=== PATIENT | female | born 1960 | race Caucasian/White ===

== ENCOUNTER → 2019-11-13 | Outpatient (CLI) | payer OTHER, SELFPAY | END | disposition home or self-care (01) | LOC: LABSPEC 11-14 13:21 | DX: Z20.828 Contact with and (suspected) exposure to other viral communicable diseases (principal); R50.9 Fever, unspecified; R09.81 Nasal congestion; M79.10 Myalgia, unspecified site | CPT/HCPCS: 87635; C9803; U0003 ==

== ENCOUNTER → 2020-04-20 | Outpatient (CLI) | payer OTHER, SELFPAY ==
--- NOTE | 2020-04-20 13:27 | CYSPIN_PTH ---
PATIENT: ALISA REVELES [facility]: [facility] U#:[id number] AGE/SX: 59/F ROOM: RE04/20/[address]: Dr. Ra Son MD : 1960 BED: DIS: 04/20/2020 SPEC #: [id number] RECD: 04/21/20 07:41 STATUS: MATTHEW RESophie #: [id number] TAHIR: 04/20/20 13:[address]: Ra Son DEPT: CYTOLOGY RECD BY: Niukra Gannon Tissues: Urine Procedures: Pap Stain (control) Special Stain Group II Cytospin Fluid HEADER OPERATION: Not noted PRE-OP DIAGNOSIS: History bladder cancer TISSUE SUBMITTED: Urine for cytology DIAGNOSIS CYTOLOGY Urine for cytology (cytospin): Negative for malignant cells. AM:tasia 04/22/2020 CYTOLOGY STUDY Slides are reviewed. CYTOLOGY GROSS Received is 60 ml of yellow clear fluid labeled with the patient's name and and designated per the requisition as urine. Submitted for cytology preparation. / tasia 04/21/2020 TC:5 CPT: 79879
[2020-04-20 13:28] LABS: Bacteria 0 SEEN /hpf (None Seen); Cytology, Body Fluid / CSF SEE PATHOLOGY REPORT; Mucous, Urine 0 SEEN /hpf (<or=2+); Red Blood Cells-Urine 0 SEEN /hpf (0-5); White Blood Cells 0 SEEN /hpf (0-5)
[2020-04-20 15:18] LABS: Color, Urine Yellow (Yellow); Glucose, Dipstick Normal (Normal); Ketone-Dipstick Negative (Negative); Leukocyte Esterase-Dipstick Negative /ul (Negative); Nitrite-Dipstick Negative (Negative); Occult Blood-Urine Negative /ul (Negative); Protein-Dipstick Negative (Negative); Urine Bilirubin Dipstick Negative (Negative); Urine Clarity Sl. Cloudy (Clear); Urine Urobilinogen Normal (Normal)
[2020-04-20 15:24] LABS: Squamous Epithelial Cells - UA 0-5 SEEN /hpf (5-10)
== END | disposition home or self-care (01) ==
LOC: LABSPEC 13:24
PROVIDERS: Visit Provider Urology
DX: Z85.51 Personal history of malignant neoplasm of bladder (principal)
CPT/HCPCS: 81001; 88108; 88313

== ENCOUNTER → 2022-09-27 | Outpatient (CLI) | payer SELFPAY ==
[2022-09-27 14:04] LABS: Thyroid Stim Hormone (TSH) 2.31 uIU/mL (0.358-3.74)
== END | disposition home or self-care (01) ==
PROVIDERS: PCP Internal Medicine; Referring Provider Internal Medicine; Visit Provider Internal Medicine
DX: E03.9 Hypothyroidism, unspecified (principal)
CPT/HCPCS: 36415; 84443

== ENCOUNTER → 2022-12-07 | Outpatient (CLI) | payer SELFPAY ==
[2022-12-07 14:06] LABS: Vitamin D,25 Hydroxy 69.8 ng/mL
== END | disposition home or self-care (01) ==
LOC: LAB 12:17
PROVIDERS: PCP Internal Medicine; Visit Provider Internal Medicine
DX: E55.9 Vitamin D deficiency, unspecified (principal)
CPT/HCPCS: 36415; 82306

== ENCOUNTER → 2023-05-08 | Outpatient (CLI) | payer SELFPAY ==
[2023-05-08 10:45] LABS: Mucous, Urine 0 SEEN /hpf (<or=2+)
[2023-05-08 11:19] LABS: Color, Urine Yellow (Yellow); Glucose, Dipstick Normal (Normal); Ketone-Dipstick Negative (Negative); Leukocyte Esterase-Dipstick 100 /ul (Negative); Nitrite-Dipstick Negative (Negative); Occult Blood-Urine 50 /ul (Negative); Protein-Dipstick 30 mg/dl (Negative); Urine Bilirubin Dipstick Negative (Negative); Urine Clarity Sl. Cloudy (Clear); Urine Urobilinogen Normal (Normal)
[2023-05-08 11:31] LABS: Amorphous Sediment 2+; Bacteria 1+ /hpf (None Seen); Red Blood Cells-Urine 0-5 SEEN /hpf (0-5); Squamous Epithelial Cells - UA 0-5 SEEN /hpf (5-10); White Blood Cells 10-25 SEEN /hpf (0-5)
== END | disposition home or self-care (01) ==
LOC: LABSPEC 10:28
PROVIDERS: PCP Internal Medicine; Referring Provider Nurse Practitioner Family; Visit Provider Nurse Practitioner Family
DX: R30.0 Dysuria (principal)
CPT/HCPCS: 81001; 87086; 87088

== ENCOUNTER → 2023-10-16 | Outpatient (CLI) | payer MEDICARE, OTHER, SELFPAY ==
[2023-10-16 17:01] LABS: Cytology, Body Fluid / CSF SEE PATHOLOGY REPORT
--- NOTE | 2023-10-17 | CYSPIN_PTH ---
PATIENT: ALISA REVELES LOC: [facility] U#:[id number] AGE/SX: 63/F ROOM: RE10/16/[address]: Dr. Ra Son MD : 1960 BED: DIS: 10/16/2023 SPEC #: [id number] RECD: 10/17/23 10:09 STATUS: MATTHEW RESophie #: [id number] TAHIR: 10/17/23 00:[address]: Ra Son DEPT: CYTOLOGY RECD BY: Patrick Faria ENTERED: 10/17/23 10:09 SP TYPE: CYSPIN FL OTHR DR: Dr. Chantel Xie MD Tissues: Urine Procedures: Pap Stain (control) Special Stain Group II Cytospin Fluid HEADER OPERATION: Not noted PRE-OP DIAGNOSIS: Malignant neoplasm of lateral wall of bladder TISSUE SUBMITTED: Urine for cytology DIAGNOSIS CYTOLOGY Urine for cytology (cytospins): Atypical urothelial cells present (Amanda Category System III). See comment. AM/ 10/17/2023 COMMENT The Amanda System for urine cytology diagnostic categorization was used in the evaluation of this case. CYTOLOGY STUDY Slides are reviewed. CYTOLOGY GROSS Received is 40 ml of light-yellow cloudy fluid labeled with the patient's name and and designated per the requisition as urine. Submitted for cytology preparation. Mr 10/17/2023 TC:? CPT: 24255
== END | disposition home or self-care (01) ==
LOC: LABSPEC 16:28
PROVIDERS: PCP Internal Medicine; Referring Provider Urology; Visit Provider Urology
DX: C67.2 Malignant neoplasm of lateral wall of bladder (principal)
CPT/HCPCS: 88108; 88313

== ENCOUNTER → 2024-04-22 | Outpatient (CLI) | payer MEDICARE, OTHER, SELFPAY | END | disposition home or self-care (01) | LOC: LABSPEC 10:52 | PROVIDERS: PCP Internal Medicine; Referring Provider Physician Assistant; Visit Provider Physician Assistant | DX: R39.15 Urgency of urination (principal) | CPT/HCPCS: 87086; 87088 ==

== ENCOUNTER → 2024-05-16 | Outpatient (CLI) | payer MEDICARE, OTHER, SELFPAY | END | disposition home or self-care (01) | LOC: LABSPEC 15:54 | PROVIDERS: PCP Internal Medicine; Referring Provider Nurse Practitioner; Visit Provider Nurse Practitioner | DX: N30.00 Acute cystitis without hematuria (principal) | CPT/HCPCS: 87077; 87086; 87088 ==

== ENCOUNTER → 2024-05-28 | Outpatient (CLI) | payer MEDICARE, OTHER, SELFPAY ==
[2024-05-28 16:39] LABS: Creatinine, Serum 0.78 mg/dL (0.70-1.20); EST Glomerular Filtration Rate 84 (>60)
== END | disposition home or self-care (01) ==
LOC: MTLAB 12:49
PROVIDERS: PCP Internal Medicine; Referring Provider Specialist; Visit Provider Specialist
DX: N28.89 Other specified disorders of kidney and ureter (principal)
CPT/HCPCS: 36415; 82565

== ENCOUNTER → 2024-06-14 | Outpatient (CLI) | payer MEDICARE, OTHER, SELFPAY ==
[2024-06-14 12:18] LABS: Anion Gap 10 (5-15); BUN 15 mg/dL (4-19); BUN/Creat Ratio 20.8 RATIO (10-20); Calcium,Total 9.8 mg/dL (7.6-11.0); Carbon Dioxide 24.8 mmol/L (21.0-32.0); Chloride 104 mmol/L (98-108); Creatinine, Serum 0.72 mg/dL (0.70-1.20); EST Glomerular Filtration Rate 92 (>60); Glucose 95 mg/dL (70-99); Potassium 4.4 mmol/L (3.3-5.1); Sodium Level 139 mmol/L (133-145)
== END | disposition home or self-care (01) ==
LOC: LAB 09:55
PROVIDERS: PCP Internal Medicine; Referring Provider Specialist; Visit Provider Specialist
DX: Z01.818 Encounter for other preprocedural examination (principal)
CPT/HCPCS: 36415; 80048

== ENCOUNTER → 2024-07-11 | Outpatient (CLI) | payer MEDICARE, OTHER, SELFPAY ==
--- NOTE | 2024-07-11 11:35 | CYST_PTH ---
PATIENT: ALISA REVELES [facility]: [facility] U#:[id number] AGE/SX: 63/F ROOM: RE07/11/[address]: Dr. Kenji Lobato MD : 1960 BED: DIS: 07/11/2024 SPEC #: [id number] RECD: 07/11/24 14:55 STATUS: MATTHEW RESophie #: [id number] TAHIR: 07/11/24 11:[address]: Kenji Lobato DEPT: SURGICAL PATHOLOGY RECD BY: Jay Rodriguez ENTERED: 07/11/24 15:53 SP TYPE: Cyst OTHR DR: Dr. Chantel Xie MD Tissues: A - CYST Procedures: Surgery Specimen Level III HEADER OPERATION: Removal cyst right long finger flexor tendon sheath PRE-OP DIAGNOSIS: Cyst long finger flexor tendon sheath, right TISSUE SUBMITTED: A- Right long finger MICROSCOPIC DIAGNOSIS A. Soft tissue, right long finger, excision: * Benign collagenous fibrous tissue with a collapsed cyst, compatible with tendon sheath cyst MICROSCOPIC DESCRIPTION Slides are reviewed. GROSS DESCRIPTION A. Received in formalin in a container labeled with the patient's name, date of , and with the accompanying paperwork indicating, right cyst long finger flexor tendon is a 1.2 x 0.7 x 0.5 cm white-yee and previously disrupted cystic-like structure. There is attached mcleod-yellow, lobulated adipose tissue. The outer surface is inked green, and serial sections reveal a scant amount of thin serous fluid with a smooth and glistening inner lining. There is an average wall thickness of 0.1 cm. Submitted entirely in A1. [facility] 07-11-2024 CPT:80884
--- OUTSIDE RECORDS SUMMARY | 2024-07-11 21:50 | XMS RPT_ITS | CCD ---
Author Organization [facility] CliniSymi Care Team Providers Care News Director Name Role Phone ANNE-MARIE WALKER, DR MONIK Sequeira Primary Care Physician Tabatha Walton Attending Unavailable Tabatha Walton Attending Unavailable Dr. Monik Xie Primary Care Provider Dr. Monik Xie Referring Provider Gregorio MARKET RESEARCH INTERVIEWER, MARKET RESEARCH INTERVIEWERHemanth Cortes Attending Provider ANNE-MARIE WALKER, DR MONIK Sequeira Primary Care Physician ANNE-MARIE WALKER, DR MONIK Sequeira Attending Cira XIE MD, DR MONIK Sequeira Primary Care Cira XIE MD, DR MONIK Sequeira Attending Cira XIE MD, DR MONIK Sequeira Primary Care Cira XIE MD, DR MONIK Sequeira Primary Care Cira XIE MD, DR MONIK Sequeira Attending Cira Xie MD, Dr. Ruggiero Primary Care Provider Anne-Marie WALKER, Dr. Ruggiero Referring Provider Carloz Wilkes Attending Provider Carloz Wilkes Attending Provider Carloz Wilkes Referring Provider Jaida Pennington Attending Provider Jaida Pennington Referring Provider Luis Alfredo WALKER, Dr. Phillip Attending Provider [phone] Kenji Lobato MD Referring Provider [phone] Jaida Pennington Attending Unavailable Jaida Pennington Referring Unavailable Anne-Marie, Monik Primary Care Unavailable Kenji Lobato Attending Unavailable Kenji Lobato Referring Unavailable Anne-Marie, Monik Primary Care Unavailable Sadi, Luke Referring Unavailable Anne-Marie, Monik Primary Care Unavailable Carloz Avitia Attending Unavailable Kenji Lobato Attending Unavailable Kenji Lobato Referring Unavailable Anne-Marie, Monik Primary Care Unavailable Anne-Marie, Monik Primary Care Unavailable Anne-Marie, Monik Referring Unavailable Jean Pierre Ware Attending Unavailable Anne-Marie, Monik Primary Care Unavailable Anne-Marie, Monik Referring Unavailable Sadi, Luke Attending Unavailable Anne-Marie, Monik Primary Care Unavailable Ra Son Attending Unavailable Ra Son Referring Unavailable Allergies Allergy Classification Reported Allergen(s) Allergy Type Date of Onset Reaction(s) Facility (11 sources) Amoxicillin; Translations: [amoxicillin] Drug Allergy 05-07-19 Eruption of skin (disorder) [facility] (7 sources) Contrast media Propensity to adverse reactions to drug [facility] (7 sources) Morphine; Translations: [morphine] Drug Allergy Nausea and vomiting (disorder) [facility] (3 sources) Amoxicillin Drug Allergy 08-21-19 23 [facility] Repository (4 sources) Sulfamethoxazole Drug Allergy 05-09-19 24 [facility] (4 sources) Trimethoprim Drug Allergy 05-09-19 24 [facility] (2 sources) Sulfamethizole; Translations: [sulfamethizole] Drug Allergy [facility] (1 source) Sulfamethoxazole Drug Allergy 04-21-19 25 [facility] Repository (1 source) Trimethoprim Drug Allergy 04-21-19 25 [facility] Repository Medications Current Medications Medication Drug Class(es) Dates Sig (Normalized) Sig (Original) levothyroxine (10 sources) l-Thyroxine Start: 04-20-2024 take 1 tablet by mouth once daily Levothyroxine 88 mcg tablet Active 88 ug PO daily April 20, 2024 12:00am Start: 10-13-2023 levothyroxine 88 mcg (0.088 mg) oral tablet Dose : 88 mcg = 1 tab(s), Oral, qDay, with plenty of water avoid antacids, calcium, or iron for at least 4 hrs before or 4 hrs after as a single daily dose before breakfast on an empty stomach, # 90 tab(s), 3 Refill(s), Pharmacy: [facility], Primary hypothyroidism, 160, cm, 10/13/23 9:45:00 EDT, Height, kg, 10/13/23 9:45:00 EDT, Dosing Weight Start Date: 10/13/23 Status: Ordered Start: 10-12-2022 levothyroxine 88 mcg (0.088 mg) oral tablet Dose : 88 mcg = 1 tab(s), Oral, qDay, # 90 tab(s), 3 Refill(s), Pharmacy: [facility], Primary hypothyroidism, 160, cm, 10/12/22 9:42:00 EDT, Height, kg, 10/12/22 9:42:00 EDT, Dosing Weight Start Date: 10/12/22 Status: Ordered Start: 10-06-2021 End: 10-01-2022 levothyroxine 75 mcg (0.075 mg) oral tablet Dose : 75 mcg = 1 tab(s), Oral, qAM, # 90 tab(s), 3 Refill(s), Pharmacy: [facility], 160, cm, 09/25/20 9:06:00 EDT, Height, kg, 09/25/20 9:06:00 EDT, Dosing Weight Start Date: 10/06/21 Stop Date: 10/01/22 Status: Ordered lisinopril 20 mg oral tablet (5 sources) Angiotensin Converting Enzyme Inhibitor Start: 04-20-2024 take 1 tablet by mouth at bedtime Lisinopril 20 mg tablet Active 20 mg PO AT BEDTIME April 20, 2024 12:00am Start: 02-08-2023 lisinopril 20 mg oral tablet Dose : 20 mg = 1 tab(s), Oral, qHS, # 90 tab(s), 3 Refill(s), Pharmacy: [facility], 160, cm, 01/09/23 14:42:00 EST, Height, kg, 01/09/23 14:42:00 EST, Dosing Weight Start Date: 02/08/23 Status: Ordered Magnesium (3 sources) Start: 04-20-2024 take 1 tablet by mouth once daily Magnesium 200 mg tablet Active 200 mg PO daily April 20, 2024 12:00am melatonin 5 mg oral tablet (6 sources) Start: 11-23-2018 Melatonin 5 mg oral tablet Dose : 5 mg = 1 tab(s), Oral, qHS, PRN as needed for insomnia, # 60 tab(s), 0 Refill(s) Start Date: 11/23/18 Status: Ordered naproxen sodium 220 mg oral tablet (5 sources) Nonsteroidal Anti-inflammatory Drug Start: 07-13-2017 Aleve 220 mg oral tablet Dose : 220 mg = 1 tab(s), Oral, qDay, PRN as needed for pain, # 30 tab(s), 0 Refill(s) Start Date: 07/13/17 Status: Ordered Vitamin D2 1.25 mg (50,000 intl units) oral capsule (2 sources) Start: 10-14-2023 Vitamin D2 1.2 5 mg (50,000 intl units) oral capsule Dose : 50,000 International_Un it = 1 cap(s), Oral, qmonth, # 4 cap(s), 3 Refill(s), Pharmacy: [facility], 160, cm, 10/13/23 9:45:00 EDT, Height, kg, 10/13/23 9:45:00 EDT, Dosing Weight Start Date: 10/14/23 Status: Ordered Start: 03-31-2023 Vitamin D2 1.2 5 mg (50,000 intl units) oral capsule Dose : 50,000 International_Unit = 1 cap(s), Oral, qmonth, # 4 cap(s), 3 Refill(s), Pharmacy: [facility], 160, cm, 01/09/23 14:42:00 EST, Height, kg, 01/09/23 14:42:00 EST, Dosing Weight Start Date: 03/31/23 Status: Ordered Completed/Discontinued Medications Medication Drug Class(es) Dates Sig (Normalized) Sig (Original) cephalexin 500 mg oral capsule (6 sources) Cephalosporin Antibacterial Start: 04-20-2024 End: 04-27-2024 take 1 capsule by mouth every twelve hours Cephalexin 500 mg capsule Discontinued 500 mg PO Q12H 14 April 20, 2024 12:00am April 26, 2024 12:00am April 27, 2024 12:26am Start: 08-04-2023 End: 08-14-2023 take 1 capsule by mouth every twelve hours Cephalexin 500 mg capsule Discontinued 500 mg PO Q12H 20 August 04, 2023 12:00am August 13, 2023 12:00am August 14, 2023 12:05am ciprofloxacin 500 mg oral tablet (4 sources) Quinolone Antimicrobial Start: 05-09-2023 End: 05-16-2023 take 1 tablet by mouth every twelve hours Ciprofloxacin Hcl (Cipro) 500 mg tablet Discontinued 500 mg PO Q12H 14 May 09, 2023 12:00am May 15, 2023 12:00am May 16, 2023 12:05am hydrocortisone 10 mg/ml / neomycin 3.5 mg/ml / polymyxin b [id number] unt/ml otic suspension (4 sources) Aminoglycoside Antibacterial, Polymyxin-class Antibacterial, Corticosteroid Start: 05-09-2023 End: 05-09-2023 Neomycin-Polymyxin -Hc 3.5-10,000-1 mg/mL-unit/mL-% drops,suspension Discontinued 3 NMA OTIC Q4H 10 May 09, 2023 12:00am May 18, 2023 12:00am May 09, 2023 12:54pm apply to (cotton) wick; replace wick every 24 hours Start: 05-09-2023 End: 05-09-2023 Mzlvwloc-Fdibatros-Xq Discon tinued 3 DRP OTIC Q4H 10 May 09, 2023 12:00am May 09, 2023 12:54pm apply to (cotton) wick; replace wick every 24 hours sulfamethoxazole 800 mg / trimethoprim 160 mg oral tablet (4 sources) Dihydrofolate Reductase Inhibitor Antibacterial, Sulfonamide Antimicrobial Start: 05-07-2023 End: 05-10-2023 Sulfamethoxazole-Trimethopri m (Bactrim Ds) 800-160 mg tablet Discontinued 1 {tbl} PO TWICE A DAY 6 3 May 07, 2023 12:00am May 09, 2023 12:00am May 10, 2023 12:05am Problems Problem Classification Problem Date Documented Da te Episodic/Chronic Cancer of bladder (8 sources) Malignant tumor of urinary bladder; Translations: [Malignant neoplasm of lateral wall of bladder] Onset: 02-06-2002 11-07-2013 Chronic Comment on above: chemo x2, BSG, mitom yacin Diseases of mouth; excluding dental (4 sources) Uvulitis; Translations: [Cellulitis and abscess of mouth] 12-28-2021 Episodic Essential hypertension (3 sources) Essential hypertension; Translations: [Essential (primary) hypertension] Chronic Genitourinary symptoms and ill-defined conditions (6 sources) Frequency of micturition; Translations: [Urgency of urination] Onset: 08-20-2022 Episodic Nutritional deficiencies (3 sources) Vitamin D deficiency; Translations: [Vitamin D deficiency, unspecified] Chronic Other connective tissue disease (1 source) Cramp in lower limb 10-13-2023 Episodic Other diseases of kidney and ureters (1 source) Other specified disorders of kidney and ureter; Translations: [Other specified disorders of kidney and ureter] Onset: 05-31-2024 Chronic Other gastrointestinal disorders (1 source) Urgent desire for stool 10-13-2023 Episodic Other skin disorders (1 source) Non-scarring alopecia; Translations: [Nonscarring hair loss, unspecified] Episodic Other skin disorders (1 source) Loss of hair 10-12-2022 Episodic Residual codes; unclassified (2 sources) Family history of cancer of colon 10-12-2022 Episodic Thyroid disorders (8 sources) Hypothyroidism; Translations: [Hypothyroidism, unspecified] 11-23-2018 Chronic Unclassified (5 sources) Patient encounter status 10-13-2021 Urinary tract infections (10 sources) Urinary tract infection, site not specified; Translations: [Urinary tract infectious disease] Onset: 08-20-2022 05-07-2023 Episodic Results Test Name Value Interpretation Reference Range Facility Anion gap in Serum or Plasma Ordered By: Kenji Lobato on 06-14-2024 Anion gap [Moles/Vol] 10 mmol/L 06-20 [facility] BUN/creatinine ratioOrdered By: Kenji Lobato on 06-14-2024 Urea nitrogen/Creatinine [Mass ratio] 20.8 mg/mg High 11-25 [facility] Basic Metabolic Profile (BMP )on 06-14-2024 BUN/CRE 20.8 RATIO High 11-25 [facility] Comment on above: Performed By: #### L 500.2500 #### [facility] [address] [place], [address] Calcium [Mass/Vol] 9.8 mg/dL Normal 7.6-11.0 [facility] Comment on above: Performed By: #### L 500.2500 #### [facility] [address] [place], [address] Chloride [Moles/Vol] 104 mmol/L Normal 98-108 [facility] Comment on above: Performed By: #### L 500.2500 #### [facility] [address] [place], [address] CO2 [Moles/Vol] 24.8 mmol/L Normal 21.0-32.0 [facility] Comment on above: Performed By: #### L [id number] #### [facility] [address] [place], [address] Creatinine [Mass/Vol] 0.72 mg/dL Normal 0.70-1.20 [facility] Comment on above: Performed By: #### L [id number] #### [facility] [address] [place], [address] GAP 10 Normal 5-15 [facility] Comment on above: Performed By: #### L 500.2500 #### [facility] [address] [place], [address] GFR/1.73 sq M.predicted among non-blacks MDRD (S/P/Bld) [Vol rate/Area] 92 mL/min/{1.73_m2} Normal >60 [facility] Comment on above: Result Comment: mL/m in/1.73m2 CKD-EPI Creatinine Equation (2020) Performed By: #### L 500.2500 #### [facility] [address] [place], [address] Glucose [Mass/Vol] 95 mg/dL Normal 70-99 [facility] Comment on above: Performed By: #### L 500.2500 #### [facility] [address] [place], [address] Potassium [Moles/Vol] 4.4 mmol/L Normal 3.3-5.1 [facility] Comment on above: Performed By: #### L [id number] #### [facility] [address] [place], [address] Sodium [Moles/Vol] 139 mmol/L Normal 133-145 [facility] Comment on above: Performed By: #### L [id number] #### [facility] [address] [place], [address] Urea nitrogen [Mass/Vol] 15 mg/dL Normal 4-19 [facility] Comment on above: Performed By: #### L 500.2500 #### [facility] [address] [place], [address] Carbon dioxide, total [Moles /volume] in Central venous bloodOrdered By: Kenji Lobato on 06-14-2024 CO2 [Moles/Vol] 24.8 mmol/L 21.0-32.0 [facility] Chloride assayOrdered By: St nathaly Lobato on 06-14-2024 Chloride [Moles/Vol] 104 mmol/L 98-108 [facility] Glomerular filtration rate ( GFR) estimation/1.73 sq m using serum, plasma, or whole bOrdered By: Kenji Lobato on 06-14-2024 GFR/1.73 sq M.predicted among non-blacks MDRD (S/P/Bld) [Vol rate/Area] 92 mL/min/{1.73_m2} >60 [facility] Comment on above: mL/min/1.73m2 CKD-EP I Creatinine Equation (2020) Potassium measurement (mass/ volume)Ordered By: Kenji Lobato on 06-14-2024 Potassium (Unsp spec) [Mass/Vol] 4.4 mmol/L 3.3-5.1 [facility] Serum creatinine measurement (mass/volume)Ordered By: Kenji Lobato on 06-14-2024 Creatinine [Mass/Vol] 0.72 mg/dL 0.70-1.20 [facility] Serum glucose measurement (m ass/volume)Ordered By: Kenji Lobato on 06-14-2024 Glucose [Mass/Vol] 95 mg/dL 70-99 [facility] Serum or plasma calcium yaakov urement (mass/volume)Ordered By: Kenji Lobato on 06-14-2024 Calcium [Mass/Vol] 9.8 mg/dL 7.6-11.0 [facility] Serum or plasma urea nitroge n measurement (mass/volume)Ordered By: Kenji Lobato on 06-14-2024 Urea nitrogen [Mass/Vol] 15 mg/dL 4-19 [facility] Sodium levelOrdered By: Aroldo Lobato on 06-14-2024 Sodium [Moles/Vol] 139 mmol/L 133-145 [facility] Glomerular filtration rate ( GFR) estimation/1.73 sq m using serum, plasma, or whole bOrdered By: Kenji Lobato on 05-28-2024 GFR/1.73 sq M.predicted among non-blacks MDRD (S/P/Bld) [Vol rate/Area] 84 mL/min/{1.73_m2} >60 [facility] Comment on above: mL/min/1.73m2 CKD-EP I Creatinine Equation (2020) Serum creatinine measurement (mass/volume)Ordered By: Kenji Lobato on 05-28-2024 Creatinine [Mass/Vol] 0.78 mg/dL 0.70-1.20 [facility] Urine Cultureon 05-18-2024 [facility] Klebsiella pneumoniae sp pneum [place] Count 80,000-100,000 Klebsiella pneumoniae sp pneum: REACTION Ampicillin Islt LAURA >=32 Ampicillin+Sulbac Islt LAURA 4 S Cefepime Islt LAURA <=0.12 S cefTRIAXone Islt LAURA <=0.25 S Ciprofloxacin Islt LAURA <=0.06 S B-Lactamase Extended Susc Islt NEG Gentamicin Islt LAURA <=1 S levoFLOXacin Islt LAURA <=0.12 S Meropenem Islt LAURA <=0.25 S Nitrofurantoin Islt LAURA 128 R Pip+Tazo Islt LAURA <=4 S TMP SMX Islt LAURA <=20 S Normal [facility] Comment on above: Performed By: #### M 100.6974 #### [facility] [address] [place], [address] Urine cultureOrdered By: Conrado kerr Tek[place] on 05-16-2024 Bacteria identified Cx Nom (U) Klebsiella pneumoniae sp pneum Abnormal [facility] .GFRon 05-03-2024 Estimated Glomerular Filtration Rate 70 ml/min/1.73sqm Normal [facility] Comment on above: Result Comment: Stages of Chronic Kidney Disease (CKD) Stage Description eGFR(ml/min/1.73 sq.m.) CKD 1 Normal kidney function or >=90 normal kindney function with possible kidney damage (ex. Proteinuria) CKD 2 Kidney damage with mild loss 60-89 of kidney function CKD 3a Mild to moderate loss of kidney 45-59 function CKD 3b Moderate to severe loss of 30-44 of kindey function CKD 4 Severe loss of kidney function 15-29 CKD 5 Kidney failure <15 Note: (go live 2024) the eGFR calculation was updated to the 2020 CKD-EPI creatinine equation without a race factor to calculate the eGFR results. Performed By: #### T SH, CMP, LIPID, GFR #### [address] [address] CMPon 05-03-2024 Albumin Level 3.6 G/dL Normal 3.4-4.8 [facility] Comment on above: Performed By: #### T SH, CMP, LIPID, GFR #### [place] [address] [place], [place] [address] Albumin/Globulin [Mass ratio] 1.0 {ratio} Low 1.1-2.5 [facility] Comment on above: Performed By: #### T SH, CMP, LIPID, GFR #### [address] [place], [place] [address] ALP [Catalytic activity/Vol] 101 U/L Normal 40-135 [facility] Comment on above: Performed By: #### T SH, CMP, LIPID, GFR #### [address] [address] ALT [Catalytic activity/Vol] 20 U/L Normal 14-59 [facility] Comment on above: Performed By: #### T SH, CMP, LIPID, GFR #### [address] [address] AST [Catalytic activity/Vol] 18 U/L Normal 10-40 [facility] Comment on above: Performed By: #### T SH, CMP, LIPID, GFR #### [address] [address] Bili Total 0.4 mg/dL Normal 0.2-1.0 [facility] Comment on above: Result Comment: Use of this assay is not recommended for patients undergoing treatment with eltrombopag due to the potential for falsely elevated results. Performed By: #### T SH, CMP, LIPID, GFR #### [address] [address] BUN/Creatinine Ratio 20 ratio Normal 7-27 [facility] Comment on above: Performed By: #### T SH, CMP, LIPID, GFR #### [address] [address] Calcium [Mass/Vol] 9.5 mg/dL Normal 8.4-10.2 [facility] Comment on above: Performed By: #### T SH, CMP, LIPID, GFR #### [address] [address] Chloride [Moles/Vol] 100 mmol/L Normal 98-107 [facility] Comment on above: Performed By: #### T SH, CMP, LIPID, GFR #### [address] [address] CO2 [Moles/Vol] 30 mmol/L Normal 23-31 [facility] Comment on above: Performed By: #### T SH, CMP, LIPID, GFR #### [address] [address] Creatinine [Mass/Vol] 0.91 mg/dL Normal 0.55-1.02 [facility] Comment on above: Result Comment: Test ing performed on Siemens Dimension EXL analyzer using a modified kinetic Alyssa technique. Performed By: #### T SH, CMP, LIPID, GFR #### [address] [address] Electrolyte Balance 5.0 mEq/L Normal 4.0-15.0 [facility] Comment on above: Performed By: #### T SH, CMP, LIPID, GFR #### [address] [address] Globulin 3.7 G/dL Normal 1.5-3.8 [facility] Comment on above: Performed By: #### T SH, CMP, LIPID, GFR #### [address] [address] Glucose [Mass/Vol] 96 mg/dL Normal 80-115 [facility] Comment on above: Performed By: #### T SH, CMP, LIPID, GFR #### [address] [address] Potassium [Moles/Vol] 4.4 mmol/L Normal 3.5-5.1 [facility] Comment on above: Performed By: #### T SH, CMP, LIPID, GFR #### [address] [address] Sodium [Moles/Vol] 135 mmol/L Low 136-145 [facility] Comment on above: Performed By: #### T SH, CMP, LIPID, GFR #### [address] [address] Total Protein 7.3 G/dL Normal 6.4-8.2 [facility] Comment on above: Performed By: #### T SH, CMP, LIPID, GFR #### [address] [address] Urea nitrogen [Mass/Vol] 18 mg/dL Normal 7-18 [facility] Comment on above: Performed By: #### T SH, CMP, LIPID, GFR #### [address] [address] LIPIDon 05-03-2024 Cholesterol [Mass/Vol] 187 mg/dL Normal 0-200 [facility] Comment on above: Result Comment: Chol esterol Reference Interval: Less than 200 Desirable 200-239 Borderline high risk 240 and above High risk Performed By: #### T SH, CMP, LIPID, GFR #### [address] [address] Cholesterol in HDL [Mass/Vol] 63 mg/dL High 40-60 [facility] Comment on above: Performed By: #### T SH, CMP, LIPID, GFR #### [address] [address] Cholesterol in LDL [Mass/Vol] 115 mg/dL Normal 0-130 [facility] Comment on above: Performed By: #### T SH, CMP, LIPID, GFR #### [address] [address] Triglyceride [Mass/Vol] 43 mg/dL Normal 0-150 [facility] Comment on above: Result Comment: Trig lyceride Reference Interval: Less than 150 Normal 150-199 Borderline high risk 200-499 High risk 500 or higher Very high risk Performed By: #### T SH, CMP, LIPID, GFR #### [address] [address] TSHon 05-03-2024 TSH Qn 2.00 m[IU]/L Normal 0.36-3.74 [facility] Comment on above: Performed By: #### T SH, CMP, LIPID, GFR #### [address] [address] Urine Cultureon 04-24-2024 [facility] Mixed Gram Pos Gram Neg Org [place] Count 11,000-25,000 [facility] Mixed contaminants. Submit a new specimen if indicated. Normal [facility] Comment on above: Performed By: #### M 100.2200 #### [facility] [address] [place], [address] Urine cultureOrdered By: Raheem Avitia on 04-22-2024 Bacteria identified Cx Nom (U) Mixed Gram Pos & Gram Neg Org Abnormal [facility] - Chemistry and C hemistry - challengeOrdered By: Carloz Avitia on 04-20-2024 Bilirubin Ql (U) Negative [facility] Glucose Ql (U) Negative [facility] Ketones Ql (U) Trace (5) [facility] pH (U) 5.0 [pH] [facility] Specific gravity (U) [Rel density] 1.010 [facility] Urobilinogen (U) [Mass/Vol] 1 mg/dL [facility] - Hematology and Cell countsOrdered By: Carloz Avitia on 04-20-2024 Hemoglobin Ql (U) Moderate [facility] - Specimen inform ationOrdered By: Carloz Avitia on 04-20-2024 Clarity (U) Clear [facility] Color (U) Straw [facility] - UrinalysisOrder ed By: Carloz Avitia on 04-20-2024 Nitrite Ql (U) Negative [facility] Protein Ql (U) Negative [facility] No Panel InformationOrdered By: Carloz Avitia on 04-20-2024 Urine Leukocytes Positive [facility] Comment on above: Moderate Urine Non-Hemolyzed Blood Non-Hemolyzed [facility] Urgent Care Visit Reporton 0 04-20-2024 Urgent Care Visit Report [facility] [address], [address] [place] [id number] OFFICE VISIT Date of Service: 04/20/24 MR#: [id number] Acct: [id number] Name: ALLYSON REVELES Rep #: [id number] : 1960 Provider: YANN Salgado Age/Sex: 63/F Location: [facility] Status: Signed Intake Vital Signs 05/07/23 13:29 Height 5 ft 3 in Intake Visit Reasons: CONCERN FOR UTI Chief Complaint: uvula swelling/ drainage Allergies amoxicillin Allergy (Unknown, Verified 04/20/24 10:18) Other sulfamethoxazole (From Bactrim) Allergy (Verified 04/20/24 10:18) Hives trimethoprim (From Bactrim) Allergy (Verified 04/20/24 10:18) Hives Medications ???Medication ???Instructions ???Recorded ???Confirmed ???Type cephalexin 500 mg capsule 500 mg PO Q12H 7 days #14 caps 04/20/24 Rx levothyroxine 88 mcg tablet 88 mcg PO QDAY 04/20/24 04/20/24 H istory lisinopril 20 mg tablet 20 mg PO QHS 04/20/24 04/20/24 His tory magnesium 200 mg tablet 200 mg PO QDAY 04/20/24 04/20/24 H istory Have you fallen in the past year?: No Nurse's Note: Patient has urgency and burning that started last night. HPI HPI Chief Complaint: uvula swelling/ drainage Details: ALLYSON REVELES, is a 63 F who presents to the office today for evaluation of dysuria. Patient states that she started with dysuria last night with progressive worsening since onset. Patient notes past medical history consistent with recurrent UTIs, patient is establish with urology for management. Patient notes mild cloudy appearance of her urine but otherwise denies symptoms of fever, chills, abdominal pain, nausea, vomiting, and back pain. ROS Const Constitutional: No body ache, chills, fatigue or fever(s) Gastro GI: No abdominal pain, change in bowel habits, diarrhea or vomiting Genitourinary-Fema le: Positive for painful urination and blood in urine; No urinary frequency, urinary urgency or suprapubic fullness Endo Endocrine: No fatigue Exam Const General: healthy appearing and no acute distress GI Palpation: soft, no guarding and nontender Other: No CVA tenderness bilatearlly Results POC Urinalysis Dip (Clinic) Office Urine Color Straw Last Edit by Virgen Cole MA on 04/20/24 10:27 Office Urine Clarity Clear Last Edit by Virgen Cole MA on 04/20/24 10:27 Office Urine Glucose Negative Last Edit by Virgen Cole MA on 04/20/24 10:27 Office Urine Ketones Trace (5) Last Edit by Virgen Cole MA on 04/20/24 10:27 Off Ur Spec [facility] [place] 1.010 Last Edit by Virgen Cole MA on 04/20/24 10:27 Office Urine pH 5.0 Last Edit by Virgen Cole MA on 04/20/24 10:27 Office Urine Bilirubin Negative Last Edit by Virgen Cole MA on 04/20/24 10:27 Office Urine Urobilinogen 1 mg/dL Last Edit by Virgen Cole MA on 04/20/24 10:27 Office Urine Blood Moderate Last Edit by Virgen Cole MA on 04/20/24 10:27 Office Urine Blood Hemolyzed Non-Hemolyzed Last Edit by Virgen Cole MA on 04/20/24 10:27 Office Urine Protein Negative Last Edit by Virgen Cole MA on 04/20/24 10:27 Office Urine Nitrate Negative Last Edit by Virgen Cole MA on 04/20/24 10:27 Off Ur Leukocytes Positive Last Edit by Virgen Cole MA on 04/20/24 10:27 Moderate Virgen Cole 04/20/24 10:27 Coding Level of Care Code Established Pt Off vis,est,level 3 Patient Type Established History Problem Focused Exam Problem Focused Medical Decision Making Moderate Complexity Diagnoses Acute cystitis with hematuria N30.01 Urinary tract infection type: acute cystitis Hematuria presence: with hematuria Assessment and Plan Assessment and Plan (1) UTI (urinary tract infection): Status: Acute Qualifiers: Urinary tract infection type: acute cystitis Hematuria presence: with hematuria Qualified Code(s): N30.01 - Acute cystitis with hematuria Plan: POC urine in office shows hematuria, based on findings and history will treat for UTI at this time. Cephalexin as prescribed below, despite allergy to amoxicillin patient notes no issues with cephalexin in the past. Encouraged good oral hydration and use of OTC AZO for dysuria. F/u in 3-4 days for culture results, if persistent or worsening in the meantime f/u with PCP, back in the [facility], or in the ER for further evaluation. Patient voiced understanding and agreement with plan. Orders: Orders POC Urinalysis Dip (Clinic) Today R39.15 - Urgency of urination Culture, Urine Today R39.15 - Urgency of urination Medications: New cephalexin 500 mg PO Q12H 7 days 14 caps 0RF Clinical Quality Measures Falls Risk Screening/Assistiv e Devices Have you fallen in the past year?: No 04/20/24 1036 Date Carloz Ramignbro Signature: Date (more content not included)... Normal [facility] BD BONE DENSITY DEXA AXIAL S Nuno 10-25-2023 BD BONE DENSITY DEXA AXIAL SKELETON ORIGINAL EXAMINATION: BONE DENSITOMETRY 024 11:23 am TECHNIQUE: Dual energy bone densitometry lumbar spine and left hip. COMPARISON: None HISTORY: Reason for Exam: Osteoporosis Screening FINDINGS: L1-L4: T score= -3.4 BMD= 0.676 g/cm2 Left femoral neck: T score= -2.5 BMD= 0.572 g/cm2 Left hip: T score= -2.2 BMD= 0.677 g/cm2 FRAX score: Not calculated. The BHOF f/k/a NOF recommends that FDA-approved medical therapies be considered in post-menopausal women and men age >/= 50 years with a: * Hip or vertebral fracture, or * T-score of /= 20% for major osteoporotic fractures or * >/= 3% for hip fractures All treatment decisions require clinical judgement and consideration of individual patient factors, including patient preferences, comorbidities, previous drug use, risk factors not captured in the FRAX registered model (e.g., frailty, falls, vitamin D deficiency, increased bone turnover, interval significant decline in bone density) and possible under- or over-estimation of fracture risk by FRAX. IMPRESSION: Osteoporosis. Interpreted by: Abdon Lal MD Preliminary Report By: Abdon Lal MD Electronically signed By Abdon Lal MD Dictated Date: 10/25/2023 10:37:10 AM Prelim Date: 10/25/2023 10:38:37 AM Sign Date: 10/25/2023 10:38:37 AM Ordering Provider: MONIK XIE [facility] Pap Stain (control)on 2023 Pap Stain (control) -- Patient Age/Sex Location Account Attending Physician -- ABDIRIZAKALLYSONDez MORALES 63/F LABSPEC [id number] Dr. Ra Son MD -- Specimen: [id number] Received: 10/17/23 Status: MATTHEW Fink Num: [id number] Spec Type: CYSPIN FL Subm Dr: Dr. Ra Son MD HEADER OPERATION: Not noted PRE-OP DIAGNOSIS: Malignant neoplasm of lateral wall of bladder TISSUE SUBMITTED: Urine for cytology -- DIAGNOSIS CYTOLOGY Urine for cytology (cytospins): Atypical urothelial cells present (Amanda Category System III). See comment. SHYANN/ 10/17/2023 COMMENT The Amanda System for urine cytology diagnostic categorization was used in the evaluation of this case. CYTOLOGY STUDY Slides are reviewed. CYTOLOGY GROSS Received is 40 ml of light-yellow cloudy fluid labeled with the patient's name and and designated per the requisition as urine. Submitted for cytology preparation. Mr 10/17/2023 TC:? CPT: 27019 Signed (signatu re on file) Dr. Mynor Pereira, DO 10/18/23 1200 -- Normal [facility] Comment on above: Performed By: #### P PAPS #### [facility] [address] [place], [place], [address] Cytology, Body Fluid / CSFon 10-16-2023 CYTOLOGY,BF/CSF SEE PATHOLOGY REPORT Normal [facility] Comment on above: Order Comment: URINE Result Comment: Spec imen submitted to Anatomical Pathology Department for testing. Performed By: #### L 350.1000 #### [facility] [address] [place], [place], [address] .Auto Diffon 2023 Basophil, Absolute 0.0 10 3/mcL Normal 0.0-0.2 [facility] ([place]) Comment on above: Performed By: #### C MP, GFR, TSH, ANEU, CBC, LIPID, VIDH, ADIFF #### [place] [address] [place], [place] [address] Basophils/100 WBC (Bld) 0.3 % Normal 0.0-2.5 A [facility] ([place]) Comment on above: Performed By: #### C MP, GFR, TSH, ANEU, CBC, LIPID, VIDH, ADIFF #### [address] [place], [place] [address] Eosinophil, Absolute 0.1 10 3/mcL Normal 0.0-0.4 [facility] ([place]) Comment on above: Performed By: #### C MP, GFR, TSH, ANEU, CBC, LIPID, VIDH, ADIFF #### [address] [address] Eosinophils/100 WBC (Bld) 0.9 % Normal 0.0-7.0 [facility] ([place]) Comment on above: Performed By: #### C MP, GFR, TSH, ANEU, CBC, LIPID, VIDH, ADIFF #### [address] [address] Lymphocyte, Absolute 1.2 10 3/mcL Normal 0.8-3.9 [facility] [place]) Comment on above: Performed By: #### C MP, GFR, TSH, ANEU, CBC, LIPID, VIDH, ADIFF #### [address] [address] Lymphocytes/100 WBC (Bld) 17.4 % Normal 10.0-50.0 [facility] ([place]) Comment on above: Performed By: #### C MP, GFR, TSH, ANEU, CBC, LIPID, VIDH, ADIFF #### [address] [address] Monocyte, Absolute 0.6 10 3/mcL Normal 0.2-1.0 [facility] ([place]) Comment on above: Performed By: #### C MP, GFR, TSH, ANEU, CBC, LIPID, VIDH, ADIFF #### [address] [address] Monocytes/100 WBC (Bld) 8.0 % Normal 1.7-13.0 [facility] ([place]) Comment on above: Performed By: #### C MP, GFR, TSH, ANEU, CBC, LIPID, VIDH, ADIFF #### [address] [address] Neutrophils/100 WBC (Bld) 73.4 % Normal 37.0-80.0 [facility] ([place]) Comment on above: Performed By: #### C MP, GFR, TSH, ANEU, CBC, LIPID, VIDH, ADIFF #### [address] [address] .GFRon 2023 GFR 79 ml/min/1.73sqm Normal [facility] ([place]) Comment on above: Result Comment: GFR Population mean for , Non- Americans Ages 20-29 = 116 mL/min/1.73 sq.m. Ages 30-39 = 107 mL/min/1.73 sq.m. Ages 40-49 = 99 mL/min/1.73 sq.m. Ages 50-59 = 93 mL/min/1.73 sq.m. Ages 60-69 = 85 mL/min/1.73 sq.m. Ages 70+ = 75 mL/min/1.73 sq.m. Chronic Kidney Disease: Less than 60 mL/min/1.73 square meters End Stage Renal Disease: Less than 15 mL/min/1.73 square meters Performed By: #### C MP, GFR, TSH, ANEU, CBC, LIPID, VIDH, ADIFF #### [address] [address] GFR Non- 66 ml/min/1.73sqm Normal [facility] ([place]) Comment on above: Result Comment: GFR Population mean for , Non- Americans Ages 20-29 = 116 mL/min/1.73 sq.m. Ages 30-39 = 107 mL/min/1.73 sq.m. Ages 40-49 = 99 mL/min/1.73 sq.m. Ages 50-59 = 93 mL/min/1.73 sq.m. Ages 60-69 = 85 mL/min/1.73 sq.m. Ages 70+ = 75 mL/min/1.73 sq.m. Chronic Kidney Disease: Less than 60 mL/min/1.73 square meters End Stage Renal Disease: Less than 15 mL/min/1.73 square meters Performed By: #### C MP, GFR, TSH, ANEU, CBC, LIPID, VIDH, ADIFF #### [address] [address] .NEUABSon 2023 Neutrophil, Absolute 5.2 10 3/mcL Normal 2.9-6.2 [facility] [place]) Comment on above: Performed By: #### C MP, GFR, TSH, ANEU, CBC, LIPID, VIDH, ADIFF #### [address] [address] CBCon 2023 Erythrocyte distribution width (RBC) [Ratio] 13.3 % Normal 11.5-14.5 [facility] ([place]) Comment on above: Performed By: #### C MP, GFR, TSH, ANEU, CBC, LIPID, VIDH, ADIFF #### [place] [address] Hematocrit (Bld) [Volume fraction] 40.6 % Normal 37.0-47.0 [facility] ([place]) Comment on above: Performed By: #### C MP, GFR, TSH, ANEU, CBC, LIPID, VIDH, ADIFF #### [place] [address] Hgb 13.5 G/dL Normal 12.0-16.0 [facility] ([place]) Comment on above: Performed By: #### C MP, GFR, TSH, ANEU, CBC, LIPID, VIDH, ADIFF #### [place] [id number] MCH (RBC) [Entitic mass] 29.0 pg Normal 27.0-31.2 [facility] ([place]) Comment on above: Performed By: #### C MP, GFR, TSH, ANEU, CBC, LIPID, VIDH, ADIFF #### [place] [address] MCHC 33.2 G/dL Normal 33.0-37.0 [facility] ([place]) Comment on above: Performed By: #### C MP, GFR, TSH, ANEU, CBC, LIPID, VIDH, ADIFF #### [place] [id number] MCV (RBC) [Entitic vol] 87.3 fL Normal 80.0-94.0 A [facility] ([place]) Comment on above: Performed By: #### C MP, GFR, TSH, ANEU, CBC, LIPID, VIDH, ADIFF #### [address] [address] Platelet 255 10 3/mcL Normal 130-400 [facility] ([place]) Comment on above: Performed By: #### C MP, GFR, TSH, ANEU, CBC, LIPID, VIDH, ADIFF #### [address] [address] Platelet mean volume (Bld) [Entitic vol] 8.7 fL Normal 7.4-10.4 [facility] ([place]) Comment on above: Performed By: #### C MP, GFR, TSH, ANEU, CBC, LIPID, VIDH, ADIFF #### [address] [address] RBC 4.65 10 6/mcL Normal 4.20-5.40 [facility] ([place]) Comment on above: Performed By: #### C MP, GFR, TSH, ANEU, CBC, LIPID, VIDH, ADIFF #### [address] [address] WBC 7.1 10 3/mcL Normal 4.6-10.8 [facility] ([place]) Comment on above: Performed By: #### C MP, GFR, TSH, ANEU, CBC, LIPID, VIDH, ADIFF #### [address] [address] CMPon 2023 Albumin Level 3.6 G/dL Normal 3.4-4.8 [facility]) Comment on above: Performed By: #### C MP, GFR, TSH, ANEU, CBC, LIPID, VIDH, ADIFF #### [address] [address] Albumin/Globulin [Mass ratio] 1.0 {ratio} Low 1.1-2.5 [facility] ([place]) Comment on above: Performed By: #### C MP, GFR, TSH, ANEU, CBC, LIPID, VIDH, ADIFF #### [address] [address] ALP [Catalytic activity/Vol] 93 U/L Normal 40-135 [facility] ([place]) Comment on above: Performed By: #### C MP, GFR, TSH, ANEU, CBC, LIPID, VIDH, ADIFF #### [address] [address] ALT [Catalytic activity/Vol] 26 U/L Normal 14-59 [facility] ([place]) Comment on above: Performed By: #### C MP, GFR, TSH, ANEU, CBC, LIPID, VIDH, ADIFF #### [address] [address] AST [Catalytic activity/Vol] 18 U/L Normal 10-40 [facility] ([place]) Comment on above: Performed By: #### C MP, GFR, TSH, ANEU, CBC, LIPID, VIDH, ADIFF #### [address] [address] Bili Total 0.6 mg/dL Normal 0.2-1.0 [facility] ([place]) Comment on above: Result Comment: Use of this assay is not recommended for patients undergoing treatment with eltrombopag due to the potential for falsely elevated results. Performed By: #### C MP, GFR, TSH, ANEU, CBC, LIPID, VIDH, ADIFF #### [address] [address] BUN/Creatinine Ratio 18 ratio Normal 7-27 [facility] ([place]) Comment on above: Performed By: #### C MP, GFR, TSH, ANEU, CBC, LIPID, VIDH, ADIFF #### [address] [address] Calcium [Mass/Vol] 9.4 mg/dL Normal 8.4-10.2 [facility] [place]) Comment on above: Performed By: #### C MP, GFR, TSH, ANEU, CBC, LIPID, VIDH, ADIFF #### [address] [address] Chloride [Moles/Vol] 102 mmol/L Normal 98-107 [facility] ([place]) Comment on above: Performed By: #### C MP, GFR, TSH, ANEU, CBC, LIPID, VIDH, ADIFF #### [address] [address] CO2 [Moles/Vol] 30 mmol/L Normal 23-31 [facility] ([place]) Comment on above: Performed By: #### C MP, GFR, TSH, ANEU, CBC, LIPID, VIDH, ADIFF #### [address] [address] Creatinine [Mass/Vol] 0.87 mg/dL Normal 0.55-1.02 [facility] ([place]) Comment on above: Performed By: #### C MP, GFR, TSH, ANEU, CBC, LIPID, VIDH, ADIFF #### [address] [address] Electrolyte Balance 6.0 mEq/L Normal 4.0-15.0 [facility] ([place]) Comment on above: Performed By: #### C MP, GFR, TSH, ANEU, CBC, LIPID, VIDH, ADIFF #### [address] [address] Globulin 3.5 G/dL Normal [facility] ([place]) Comment on above: Performed By: #### C MP, GFR, TSH, ANEU, CBC, LIPID, VIDH, ADIFF #### [address] [address] Glucose [Mass/Vol] 91 mg/dL Normal 80-115 [facility] [place]) Comment on above: Performed By: #### C MP, GFR, TSH, ANEU, CBC, LIPID, VIDH, ADIFF #### [address] [address] Potassium [Moles/Vol] 4.9 mmol/L Normal 3.5-5.1 [facility] ([place]) Comment on above: Performed By: #### C MP, GFR, TSH, ANEU, CBC, LIPID, VIDH, ADIFF #### [address] [address] Sodium [Moles/Vol] 138 mmol/L Normal 136-145 [facility] [place]) Comment on above: Performed By: #### C MP, GFR, TSH, ANEU, CBC, LIPID, VIDH, ADIFF #### [address] [address] Total Protein 7.1 G/dL Normal 6.4-8.2 [facility] ([place]) Comment on above: Performed By: #### C MP, GFR, TSH, ANEU, CBC, LIPID, VIDH, ADIFF #### [address] [place], [place] [address] Urea nitrogen [Mass/Vol] 16 mg/dL Normal 7-18 [facility] ([place]) Comment on above: Performed By: #### C MP, GFR, TSH, ANEU, CBC, LIPID, VIDH, ADIFF #### [address] [address] LABORATORYOrdered By: SYSTEM SYSTEM on 2023 25-hydroxyvitamin D3 [Mass/Vol] 38.4 ng/mL Invalid Interpretation Code AO ADM SS Comment on above: Interpretive Data: I nterpretive Values Based on Total 25(OH) Vitamin D: Deficient <20 ng/mL Insufficient 20 - <30 ng/mL Sufficient 30-100 ng/mL Albumin BCP dye [Mass/Vol] 3.6 G/dL Normal 3.4 - 4.8 G/dL AO ADM SS Albumin/Globulin [Mass ratio] 1.0 {ratio} Low 1.1 - 2.5 ratio AO ADM SS ALP [Catalytic activity/Vol] 93 U/L Normal 40 - 135 U/L AO ADM SS ALT With P-5'-P [Catalytic activity/Vol] 26 U/L Normal 14 - 59 U/L AO ADM SS AST With P-5'-P [Catalytic activity/Vol] 18 U/L Normal 10 - 40 U/L AO ADM SS Basophil, Absolute 0.0 103/mcL Normal 0.0 - 0.2 10^3/mcL AO Workflow SS Basophils/100 WBC (Bld) 0.3 % Normal 0.0 - 2.5 % AO Workflow SS Bilirubin [Mass/Vol] 0.6 mg/dL Normal 0.2 - 1 .0 mg/dL AO ADM SS Comment on above: Interpretive Data: U se of this assay is not recommended for patients undergoing treatment with eltrombopag due to the potential for falsely elevated results. Calcium [Mass/Vol] 9.4 mg/dL Normal 8.4 - 10. 2 mg/dL AO ADM SS Chloride [Moles/Vol] 102 mmol/L Normal 98 - 10 7 mmol/L AO ADM SS CO2 [Moles/Vol] 30 mmol/L Normal 23 - 31 mmol/L AO ADM SS Creatinine [Mass/Vol] 0.87 mg/dL Normal 0.55 - 1.02 mg/dL AO ADM SS Electrolyte Balance 6.0 mEq/L Normal 4.0 - 15 .0 mEq/L AO ADM SS Eosinophil, Absolute 0.1 103/mcL Normal 0.0 - 0 .4 10^3/mcL AO Workflow SS Eosinophils/100 WBC (Bld) 0.9 % Normal 0.0 - 7.0 % AO Workflow SS Erythrocyte distribution width (RBC) [Ratio] 13.3 % Normal 11.5 - 14.5 % AO Workflow SS GFR/1.73 sq M.predicted among blacks MDRD (S/P/Bld) [Vol rate/Area] 79 ml/min/1.73sqm Invalid Interpretation Code AO Chemistry S Comment on above: Interpretive Data: GFR Population mean for , Non- Americans Ages 20-29 = 116 mL/min/1.73 sq.m. Ages 30-39 = 107 mL/min/1.73 sq.m. Ages 40-49 = 99 mL/min/1.73 sq.m. Ages 50-59 = 93 mL/min/1.73 sq.m. Ages 60-69 = 85 mL/min/1.73 sq.m. Ages 70+ = 75 mL/min/1.73 sq.m. Chronic Kidney Disease: Less than 60 mL/min/1.73 square meters End Stage Renal Disease: Less than 15 mL/min/1.73 square meters GFR/1.73 sq M.predicted among non-blacks MDRD (S/P/Bld) [Vol rate/Area] 66 ml/min/1.73sqm Invalid Interpretation Code AO Chemistry S Comment on above: Interpretive Data: GFR Population mean for , Non- Americans Ages 20-29 = 116 mL/min/1.73 sq.m. Ages 30-39 = 107 mL/min/1.73 sq.m. Ages 40-49 = 99 mL/min/1.73 sq.m. Ages 50-59 = 93 mL/min/1.73 sq.m. Ages 60-69 = 85 mL/min/1.73 sq.m. Ages 70+ = 75 mL/min/1.73 sq.m. Chronic Kidney Disease: Less than 60 mL/min/1.73 square meters End Stage Renal Disease: Less than 15 mL/min/1.73 square meters Globulin 3.5 G/dL Invalid Interpretation Code AO ADM SS Glucose [Mass/Vol] 91 mg/dL Normal 80 - 115 mg/dL AO ADM SS Hematocrit (Bld) [Volume fraction] 40.6 % Normal 37.0 - 47.0 % AO Workflow SS Hemoglobin (Bld) [Mass/Vol] 13.5 G/dL Normal 12.0 - 16.0 G/dL AO Workflow SS Lymphocyte, Absolute 1.2 103/mcL Normal 0.8 - 3 .9 10^3/mcL AO Workflow SS Lymphocytes/100 WBC (Bld) 17.4 % Normal 10.0 - 50.0 % AO Workflow SS MCH (RBC) [Entitic mass] 29.0 pg Normal 27. 0 - 31.2 pg AO Workflow SS MCHC 33.2 G/dL Normal 33.0 - 37.0 G/dL AO Workflow SS MCV (RBC) [Entitic vol] 87.3 fL Normal 80.0 - 94.0 fL AO Workflow SS Monocyte, Absolute 0.6 103/mcL Normal 0.2 - 1.0 10^3/mcL AO Workflow SS Monocytes/100 WBC (Bld) 8.0 % Normal 1.7 - 13.0 % AO Workflow SS Neutrophil, Absolute 5.2 103/mcL Normal 2.9 - 6 .2 10^3/mcL AO Workflow SS Neutrophils/100 WBC (Bld) 73.4 % Normal 37.0 - 80.0 % AO Workflow SS Platelet mean volume (Bld) [Entitic vol] 8.7 fL Normal 7.4 - 10.4 fL AO Workflow SS Platelets (Bld) [#/Vol] 255 103/mcL Normal 130 - 400 10^3/mcL AO Workflow SS Potassium [Moles/Vol] 4.9 mmol/L Normal 3.5 - 5.1 mmol/L AO ADM SS Protein [Mass/Vol] 7.1 G/dL Normal 6.4 - 8.2 G/dL AO ADM SS RBC (Bld) [#/Vol] 4.65 106/mcL Normal 4.20 - 5.4 0 10^6/mcL AO Workflow SS Sodium [Moles/Vol] 138 mmol/L Normal 136 - 145 mmol/L AO ADM SS TSH Qn 2.28 m[IU]/L Normal 0.36 - 3.74 mcIU/mL AO ADM SS Urea nitrogen [Mass/Vol] 16 mg/dL Normal 7 - 18 mg/d L AO ADM SS Urea nitrogen/Creatinine [Mass ratio] 18 ratio Normal 7 - 27 ratio AO ADM SS WBC (Bld) [#/Vol] 7.1 103/mcL Normal 4.6 - 10.8 10^3/mcL AO Workflow SS LABORATORYOrdered By: Amber Durand on 2023 Cholesterol [Mass/Vol] 197 mg/dL Normal 0 - 2 00 mg/dL AO ADM SS Comment on above: Interpretive Data: C holesterol Reference Interval: Less than 200 Desirable 200-239 Borderline high risk 240 and above High risk Cholesterol in HDL [Mass/Vol] 65 mg/dL High 40 - 60 mg/dL AO ADM SS Cholesterol in LDL [Mass/Vol] 122 mg/dL Normal 0 - 130 mg/dL AO ADM SS Triglyceride [Mass/Vol] 52 mg/dL Normal 0 - 150 mg/dL AO ADM SS Comment on above: Interpretive Data: T riglyceride Reference Interval: Less than 150 Normal 150-199 Borderline high risk 200-499 High risk 500 or higher Very high risk LIPIDon 2023 Cholesterol [Mass/Vol] 197 mg/dL Normal 0-200 [facility] Comment on above: Result Comment: Chol esterol Reference Interval: Less than 200 Desirable 200-239 Borderline high risk 240 and above High risk Performed By: #### C MP, GFR, TSH, ANEU, CBC, LIPID, VIDH, ADIFF #### [address] [address] [place], [place] [address] Cholesterol in HDL [Mass/Vol] 65 mg/dL High 40-60 [facility] ([place]) Comment on above: Performed By: #### C MP, GFR, TSH, ANEU, CBC, LIPID, VIDH, ADIFF #### [address] [address] [place], [place] [address] Cholesterol in LDL [Mass/Vol] 122 mg/dL Normal 0-130 [facility] ([place]) Comment on above: Performed By: #### C MP, GFR, TSH, ANEU, CBC, LIPID, VIDH, ADIFF #### [address] [place], [place] [address] Triglyceride [Mass/Vol] 52 mg/dL Normal 0-150 A [facility] ([place]) Comment on above: Result Comment: Trig lyceride Reference Interval: Less than 150 Normal 150-199 Borderline high risk 200-499 High risk 500 or higher Very high risk Performed By: #### C MP, GFR, TSH, ANEU, CBC, LIPID, VIDH, ADIFF #### [address] [place], [place] [address] TSHon 2023 TSH Qn 2.28 m[IU]/L Normal 0.36-3.74 [facility] ([place]) Comment on above: Performed By: #### C MP, GFR, TSH, ANEU, CBC, LIPID, VIDH, ADIFF #### [address] [address] VIDHon 2023 Vit. D 25-Hydroxy 38.4 ng/mL Normal [facility] ([place]) Comment on above: Result Comment: Inte rpretive Values Based on Total 25(OH) Vitamin D: Deficient <20 ng/mL Insufficient 20 - <30 ng/mL Sufficient 30-100 ng/mL Performed By: #### C MP, GFR, TSH, ANEU, CBC, LIPID, VIDH, ADIFF #### [address] [address] Urgent Care Visit Reporton 0 08-04-2023 Urgent Care Visit Report [facility] [address], [address] [place], [place] [address] OFFICE VISIT Date of Service: 08/04/23 MR#: [id number] Acct: [id number] Name: ALLYSON REVELES Rep #: [id number] : 1960 Provider: YANN Camacho Age/Sex: 62/F Location: [email or web address] Status: Signed Intake Vital Signs 05/07/23 13:29 08/04/23 08:00 Height 5 ft 3 in Weight: 143 lb BMI 25.3 BP 128/78 H 124/64 H Blood Pressure Location Lt brachial Lt brachial Position Sitting Sitting Respiration 12 16 Pulse 87 92 Pulse Source Monitor NIBP Temp 98.4 F 98.7 F Temp Source Temporal Temporal Pulse Oximetry (%) 97 95 Oxygen Delivery Method room air room air Intake Visit Reasons: UVULA SWOLLEN Chief Complaint: 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 unsure of environmental allergies. denies ST HPI HPI Chief Complaint: uvula swelling/ drainage Details: ALLYSON REVELES, is a 62 F who presents to the office today for complaint of slightly sore throat and swelling of her uvula. 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 She states in the past she has had to have a Kenalog injection as well as an antibiotic for resolution. She denies fever, chills, sweats. No nausea, vomiting or diarrhea. No cough, shortness of breath or difficulty breathing. No other associated symptoms or alleviating/aggrav ating factors. ROS Const Constitutional: No other (6 system ROS completed with pertinent findings in the HPI otherwise normal.) Exam Const General: cooperative and healthy appearing [facility] Head: normal to inspection Ears: hearing grossly normal bilaterally, TM's normal bilaterally and EAC's normal Nose: external nose normal and nasal discharge clear Mouth: oral mucosae normal Throat: tonsils normal Other: Swollen uvula which is midline Resp Effort Inspection: normal respiratory effort Auscultation: Bilateral: Clear to Auscultation Cardio Palpation: normal PMI Rate: regular rate Rhythm: regular rhythm Neuro General: patient alert and CN's II-XI intact bilaterally Psych Appearance: grossly normal Mental Status: mental status grossly normal Office Procedures Ortho Injections Injections Is this Buy Bill?: Yes Office Meds Kenalog 40 mg/mL suspension for injection Performing Provider: YANN Cheney [facility] Administered by: Hien Escobar on 08/04/23 08:18 Dose Route Admin Location Dispensed Lot Number Expiration Date [facility] Man ufacturer 60 mg IM left gluteus 1.5 mL [id number] 06/06/25 7836-9860-14 [facility] Coding Level of Care Code Off vis,new,level 3 Diagnoses Uvulitis K12.2 Assessment and Plan Assessment and Plan (1) Uvulitis: Status: Acute Orders: Orders Kenalog Injection Today K13.79 - Other lesions of oral mucosa Medications: New cephalexin 500 mg PO Q12H 10 days 20 caps 0RF Plan Keflex as prescribed today. Patient given Kenalog injection in the office. Encouraged to get plenty of rest, drink lots of clear liquids, and use Tylenol or Ibuprofen (unless contraindicated) for fever and comfort. Patient also educated on other symptomatic management techniques. To be seen in 7-10 days if no improvement; sooner if worsening of symptoms. Patient advised of potential red flags and when appropriate to report to the ED. Patient verbalized understanding and agreement with all the above. Clinical Quality Measures Falls Risk Screening/Assistiv e Devices Have you fallen in the past year?: No 08/04/23 0825 Date Jean Pierre Wren Signature: Date (if applicable) CC: Normal [facility] Amorphous sediment detection in urine sediment by light microscopyOrdered By: Eric Perkins on 05-07-2023 Amorphous sediment LM Ql (Urine sed) 2+ [facility] Basophil percentageOrdered B y: Eric Perkins on 05-07-2023 Basophil percentage 10-25 SEEN /hpf 0-5 [facility] Bilirubin Test strip Ql (U)O rdered By: Eric Perkins on 05-07-2023 Bilirubin Ql (U) Negative Negative [facility] Culture, urineOrdered By: Chhaya Perkins on 05-07-2023 Bacteria identified Cx Nom (U) Mixed Gram Pos & Gram Neg Org [facility] Ketones Test strip Ql (U)Ord ered By: Eric Perkins on 05-07-2023 Ketones Ql (U) Negative Negative [facility] Laboratory - Chemistry and C hemistry - challengeon 05-07-2023 Bilirubin Ql (U) Negative [facility] Glucose Ql (U) Negative [facility] Ketones Ql (U) Negative [facility] pH (U) 7.5 [pH] [facility] Specific gravity (U) [Rel density] 1.010 [facility] Urobilinogen (U) [Mass/Vol] Negative [facility] Laboratory - Hematology and Cell countson 05-07-2023 Hemoglobin Ql (U) Moderate [facility] Laboratory - Specimen inform ationon 05-07-2023 Clarity (U) Cloudy [facility] Color (U) YELLOW [facility] Laboratory - Urinalysison Nitrite Ql (U) Negative [facility] Protein Ql (U) Negative [facility] Mucus LM Ql (Urine sed)Order ed By: Eric Perkins on 05-07-2023 Mucus Ql (Urine sed) 0 SEEN /hpf [facility] Nitrite Test strip Ql (U)Ord ered By: Eric Perkins on 05-07-2023 Nitrite Ql (U) Negative Negative [facility] No Panel Informationon 05-06 Urine Leukocytes Positive [facility] Urine Non-Hemolyzed Blood Non-Hemolyzed [facility] No Panel InformationOrdered By: Eric Perkins on 05-07-2023 Urine RBC 0-5 SEEN /hpf 0-5 [facility] Protein Test strip Ql (U)Ord ered By: Eric Perkins on 05-07-2023 Protein Ql (U) 30 mg/dl Negative [facility] Squamous epithelial cells de tection in urine sediment by light microscopyOrdered By: Eric Perkins on 05-07-2023 Epithelial cells.squamous LM Ql (Urine sed) 0-5 SEEN /hpf 5-10 [facility] Urine blood detectionOrdered By: Eric Perkins on 05-07-2023 RBC Ql (U) 50 /ul Negative [facility] Urine clarityOrdered By: Dago Perkins on 05-07-2023 Clarity (U) Sl. Cloudy Clear [facility] Urine color determinationOrd ered By: Eric Perkins on 05-07-2023 Color (U) Yellow Yellow [facility] Urine glucose detectionOrder ed By: Eric Perkins on 05-07-2023 Glucose Ql (U) Normal mg/dl Normal [facility] Urine leukocyte esterase det ection by dipstickOrdered By: Eric Perkins on 05-07-2023 Leukocyte esterase Test strip Ql (U) 100 /ul Negative [facility] Urine pHOrdered By: Eric sweeney on 05-07-2023 pH (U) 7.0 [pH] 5.0 - 8.0 [facility] Urine sediment bacteria coun t by microscopy (number/high power field)Ordered By: Eric Perkins on 05-07-2023 Bacteria LM.HPF (Urine sed) [#/Area] 1 /[HPF] None Seen [facility] Urine specific gravity measu rementOrdered By: Eric Perkins on 05-07-2023 Specific gravity (U) [Rel density] 1.010 1.002-1.030 [facility] Urine urobilinogen measureme ntOrdered By: Eric Perkins on 05-07-2023 Urobilinogen Ql (U) Normal mg/dl Normal [facility] No Panel InformationOrdered By: Monik Xie on 12-07-2022 Vitamin D 25-Hydroxy 69.8 ng/mL [facility] Comment on above: Vitamin D 25(OH) Sta tus Range Deficiency <20 ng/mL (50nmol/L) Insufficiency 20 - 30 ng/mL (50 - 75 nmol/L) Sufficiency 30 - 100 ng/mL (75 - 250 nmol/L) Toxicity >100 ng/mL (>250 nmol/L) No Panel Informationon 09-27 Thyroid Stimulating Hormone (TSH) 2.31 uIU/mL 0.358-3.74 [facility] AMB Office Visit Urgent Care on 08-20-2022 AMB Office Visit Urgent Care [place] [id number] Medical Records Department AMB Office Visit Urgent Care Name: Allyson Reveles Pt Type: PREETI AMB MR #: [id number] Room AND Bed: Date of : 1960 Date of Service: 08/20/22 Age: 61 Ordering Doctor: Sex: Female Family Doctor: Order #: Dictating Doctor: Tabatha Walton CNP Admit Date: Referring Doctor: Other Doctor: Additional Copies: === Chief Complaint Chief Complaint: 61 year old female presents today with urinary symptoms that include burning with urination, urinary frequency and urgency. Patient denies body aches, chills, fever, abdominal pain, nausea, vomiting, diarrhea and flank pain. Symptoms started (08/18/22). HPI HPI Comments History of Present Illness Details This pleasant patient presents today with complaints of dysuria, frequency, urgency with onset . No back pain bilaterally. No groin pain bilaterally. No flank pain bilaterally. No fevers prior to arrival. No abdominal pain, or nausea, vomiting, diarrhea, constipation. No headache. No ear or eye pain or pressure bilaterally. No nasal discharge or sensation of postnasal drip. No throat pain or difficulty swallowing. No cough or shortness of breath or difficulty breathing. No chest pain or palpitations. No known recent exposure to sick contacts. 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) PFSH - Last Reconciled 08/20/22 by Rachel Cisneros CMA ergocalciferol (vitamin D2) 1,250 mcg PO 1XW famotidine 20 mg PO DAILY levothyroxine 88 mcg PO DAILY Allergies amoxicillin Allergy (Intermediate, Verified 08/20/22 12:51) Rash Review of Systems Const All systems reviewed AND are unremarkable except as noted in HPI and below Vitals Vitals 08/20/22 12:52 Weight 64.58 kg Height 63 in BMI 25.2 BP 136/83 Blood Pressure Location Right Arm Position Sitting Bp cuff size Standard Temp 97.6 F Temp Source Oral Pulse 67 Pulse Position Sitting Pulse Source Monitor Pulse Rate Regular Pulse Oximetry (%) 96 Oxygen Delivery Method Room Air Exam Exam - Const Constitutional General: cooperative, healthy appearing, comfortable, no acute distress, alert, awake and Physically active [facility] Head: normal to inspection Ears: hearing grossly normal bilaterally and external ears normal General nose exam: Normal external nose present and Normal nares present Face and sinus: normal facial exam Mouth: Normal oral and palatal mucosa present Throat: posterior oropharynx normal Eyes General: appearance normal, both eyes and all related structures Neck Neck: normal visual inspection and full ROM Resp Effort AND Inspection: normal respiratory effort and no cough GI Inspection (GI): normal to inspection Palpation (GI): Soft to palpation, not firm, Tenderness to palpation present (GI) (Verbalized mild suprapubic pressure sensation with palp, no other abd pain.), no guarding, not rigid, No hepatos plenomegaly present, no masses and No Rebound tenderness present Auscultation: normal bowel sounds General Exam: Yes Increase in Frequency and No CVA tenderness Skin General skin exam: no rashes or lesions noted, elasticity normal, turgor normal and no jaundice Psych Appearance: grossly normal Mental Status: mental status grossly normal Results AMB Urinalysis AMB Urine Appearance Cloudy Last Edit by Rachel Cisneros CMA on 08/20/22 12:56 AMB Urine Color Pale Yellow Last Edit by Rachel Cisneros CMA on 08/20/22 12:56 AMB Urine Leukocyte Esterase Moderate Last Edit by Rachel Cisneros CMA on 08/20/22 12:56 AMB Urine Nitrite Negative Last Edit by Rachel Cisneros CMA on 08/20/22 12:56 AMB Urobilinogen 0.2 Last Edit by Rachel Cisneros CMA on 08/20/22 12:56 AMB Urine Protein Negative Last Edit by Rachel Cisneros CMA on 08/20/22 12:56 AMB Urine PH 6.0 Last Edit by aRchel Cisneros CMA on 08/20/22 12:56 AMB Urine Blood Large Last Edit by Rachel Cisneros CMA on 08/20/22 12:56 AMB Urine Specific [facility] [place] 1.015 Last Edit by Rachel Cisneros CMA on 08/20/22 12:56 AMB Urine Ketones Negative Last Edit by Rachel Cisneros CMA on 08/20/22 12:56 AMB Urine Bilirubin Negative Last Edit by Rachel Cisneros CMA on 08/20/22 12:56 AMB Urine Glucose Negative Last Edit by Rachel Cisneros CMA on 08/20/22 12:56 Assessment AND Plan Assessment AND Plan (1) Urinary tract infection in female: Code(s): N39.0 - Urinary tract infection, site not specified (2) Dysuria: Status: Acute Code(s): R30.0 - Dysuria Plan: Urinalysis in clinic positive for moderate leukocytes, large blood. Nitrates negative. Based on urinalysis and presenting symptoms decision to initiate empiric antibiotic therapy to treat UTI. Take medications as prescribed. We will send specimen for culture and sensi (more content not included)... Normal [facility] Ambulatory Bacteria identified in Urine by Cultureon 08-20-2022 Bacteria identified Cx Nom (U) Bacteria identified in Urine by Culture SEE RESULTS BELOW SOURCE: URINE SPECIMEN TYPE: NONE CULTURE RESULTS: 10,000 to 50,000 COLONIES/ML ESCHERICHIA COLI YUSRA INDICATIVE OF PROBABLE VAGINAL OR URETHRAL YUSRA ALSO PRESENT IN SAMPLE. Organism: ESCHERICHIA COLI Method: LAURA AMPICILLIN >16 RESISTANT AMPICILLIN/SULBACT AM 16/8 INTERMEDIATE AZTREONAM <=4 SUSCEPTIBLE CEFAZOLIN >16 RESISTANT CEFEPIME <=2 SUSCEPTIBLE CEFTAZIDIME 4 SUSCEPTIBLE CEFTRIAXONE (non-meningitis) 2 INTERMEDIATE CEFUROXIME 16 INTERMEDIATE CIPROFLOXACIN <=1 SUSCEPTIBLE GENTAMICIN <=4 SUSCEPTIBLE LEVOFLOXACIN <=2 SUSCEPTIBLE NITROFURANTOIN <=32 SUSCEPTIBLE PIPERACILLIN/TAZOB ACTAM <=16 SUSCEPTIBLE TETRACYCLINE >8 RESISTANT TOBRAMYCIN <=4 SUSCEPTIBLE TRIMETH/SULFA <=2/38 SUSCEPTIBLE TESTING PERFORMED BY: [employer] [facility] [employer] [address] [place] [address], [facility] [id number] Brenda BUSCH [facility] Comment on above: Performed By: #### 6 30-4 #### [facility] , LABORATORYOrdered By: SYSTEM SYSTEM on 08-15-2022 25-hydroxyvitamin D3 [Mass/Vol] 24.4 ng/mL Invalid Interpretation Code AO ADM SS Albumin BCP dye [Mass/Vol] 3.9 G/dL Invalid Interpretation Code 3.4 - 4.8 G/dL AO ADM SS Albumin/Globulin [Mass ratio] 1.1 {ratio} Invalid Interpretation Code 1.1 - 2.5 ratio AO ADM SS ALP [Catalytic activity/Vol] 97 U/L Invalid Interpretation Code 40 - 135 U/L AO ADM SS ALT With P-5'-P [Catalytic activity/Vol] 24 U/L Invalid Interpretation Code 14 - 59 U/L AO ADM SS AST With P-5'-P [Catalytic activity/Vol] 17 U/L Invalid Interpretation Code 10 - 40 U/L AO ADM SS Basophil, Absolute 0.0 103/mcL Invalid Interpretation Code 0.0 - 0.2 10^3/mcL AO Workflow SS Basophils/100 WBC (Bld) 0.4 % Invalid Interpretation Code 0.0 - 2.5 % AO Workflow SS Bilirubin [Mass/Vol] 0.4 mg/dL Invalid Interpretation Code 0.2 - 1.0 mg/dL AO ADM SS Calcium [Mass/Vol] 9.7 mg/dL Invalid Interpretation Code 8.4 - 10.2 mg/dL AO ADM SS Chloride [Moles/Vol] 104 mmol/L Invalid Interpretation Code 98 - 107 mmol/L AO ADM SS CO2 [Moles/Vol] 30 mmol/L Invalid Interpretation Code 23 - 31 mmol/L AO ADM SS Creatinine [Mass/Vol] 0.80 mg/dL Invalid Interpretation Code 0.55 - 1.02 mg/dL AO ADM SS Electrolyte Balance 6.0 mEq/L Invalid Interpretation Code 4.0 - 15.0 mEq/L AO ADM SS Eosinophil, Absolute 0.1 103/mcL Invalid Interpretation Code 0.0 - 0.4 10^3/mcL AO Workflow SS Eosinophils/100 WBC (Bld) 2.5 % Invalid Interpretation Code 0.0 - 7.0 % AO Workflow SS Erythrocyte distribution width (RBC) [Ratio] 13.0 % Invalid Interpretation Code 11.5 - 14.5 % AO Workflow SS Ferritin [Mass/Vol] 194.0 ng/mL Invalid Interpretation Code 8.0 - 252.0 ng/mL AO ADM SS GFR/1.73 sq M.predicted among blacks MDRD (S/P/Bld) [Vol rate/Area] 88 ml/min/1.73sqm Invalid Interpretation Code AO Chemistry S GFR/1.73 sq M.predicted among non-blacks MDRD (S/P/Bld) [Vol rate/Area] 72 ml/min/1.73sqm Invalid Interpretation Code AO Chemistry S Globulin 3.6 G/dL Invalid Interpretation Code AO ADM SS Glucose [Mass/Vol] 93 mg/dL Invalid Interpretation Code 80 - 115 mg/dL AO ADM SS Hematocrit (Bld) [Volume fraction] 41.4 % Invalid Interpretation Code 37.0 - 47.0 % AO Workflow SS Hemoglobin (Bld) [Mass/Vol] 14.1 G/dL Invalid Interpretation Code 12.0 - 16.0 G/dL AO Workflow SS Lymphocyte, Absolute 1.1 103/mcL Invalid Interpretation Code 0.8 - 3.9 10^3/mcL AO Workflow SS Lymphocytes/100 WBC (Bld) 18.7 % Invalid Interpretation Code 10.0 - 50.0 % AO Workflow SS MCH (RBC) [Entitic mass] 28.8 pg Invalid Interpretation Code 27.0 - 31.2 pg AO Workflow SS MCHC 33.9 G/dL Invalid Interpretation Code 33.0 - 37.0 G/dL AO Workflow SS MCV (RBC) [Entitic vol] 84.7 fL Invalid Interpretation Code 80.0 - 94.0 fL AO Workflow SS Monocyte, Absolute 0.6 103/mcL Invalid Interpretation Code 0.2 - 1.0 10^3/mcL AO Workflow SS Monocytes/100 WBC (Bld) 10.4 % Invalid Interpretation Code 1.7 - 13.0 % AO Workflow SS Neutrophil, Absolute 3.9 103/mcL Invalid Interpretation Code 2.9 - 6.2 10^3/mcL AO Workflow SS Neutrophils/100 WBC (Bld) 68.0 % Invalid Interpretation Code 37.0 - 80.0 % AO Workflow SS Platelet mean volume (Bld) [Entitic vol] 8.4 fL Invalid Interpretation Code 7.4 - 10.4 fL AO Workflow SS Platelets (Bld) [#/Vol] 224 103/mcL Invalid Interpretation Code 130 - 400 10^3/mcL AO Workflow SS Potassium [Moles/Vol] 5.0 mmol/L Invalid Interpretation Code 3.5 - 5.1 mmol/L AO ADM SS Protein [Mass/Vol] 7.5 G/dL Invalid Interpretation Code 6.4 - 8.2 G/dL AO ADM SS RBC (Bld) [#/Vol] 4.89 106/mcL Invalid Interpretation Code 4.20 - 5.40 10^6/mcL AO Workflow SS Sodium [Moles/Vol] 140 mmol/L Invalid Interpretation Code 136 - 145 mmol/L AO ADM SS TSH Qn 3.97 m[IU]/L Invalid Interpretation Code 0.36 - 3.74 mcIU/mL AO ADM SS Urea nitrogen [Mass/Vol] 18 mg/dL Invalid Interpretation Code 7 - 18 mg/dL AO ADM SS Urea nitrogen/Creatinine [Mass ratio] 22 ratio Invalid Interpretation Code 7 - 27 ratio AO ADM SS WBC (Bld) [#/Vol] 5.8 103/mcL Invalid Interpretation Code 4.6 - 10.8 10^3/mcL AO Workflow SS LABORATORYOrdered By: Mor Josue on 08-15-2022 Cholesterol [Mass/Vol] 190 mg/dL Invalid Interpretation Code 0 - 200 mg/dL AO ADM SS Cholesterol in HDL [Mass/Vol] 63 mg/dL Invalid Interpretation Code 40 - 60 mg/dL AO ADM SS Cholesterol in LDL [Mass/Vol] 112 mg/dL Invalid Interpretation Code 0 - 130 mg/dL AO ADM SS Triglyceride [Mass/Vol] 77 mg/dL Invalid Interpretation Code 0 - 150 mg/dL AO ADM SS LABORATORYOrdered By: Kimberley Harper on 12-02-2021 TSH Qn 2.26 m[IU]/L Invalid Interpretation Code 0.36 - 3.74 mcIU/mL AO ADM SS LABORATORYOrdered By: Kimberley Harper on 10-06-2021 Appearance (U) Clear (10/06/21 9:17 AM) Invalid Interpretation Code Clear AO Auto Urine SS Bilirubin Ql (U) Negative (10/06/21 9:17 AM) Invalid Interpretation Code Negative AO Auto Urine SS Color (U) Yellow (10/06/21 9:17 AM) Invalid Interpretation Code AO Auto Urine SS Glucose Test strip (U) [Mass/Vol] Negative Invalid Interpretation Code Negativemg/d L AO Auto Urine SS Hemoglobin Auto test strip (U) [Mass/Vol] Trace *ABN* (10/06/21 9:17 AM) Invalid Interpretation Code Negative AO Auto Urine SS Ketones Ql (U) Negative Invalid Interpretation Code Negativemg/d L AO Auto Urine SS UA Leuk Est Negative (10/06/21 9:17 AM) Invalid Interpretation Code Negative AO Auto Urine SS UA Nitrite Negative (10/06/21 9:17 AM) Invalid Interpretation Code Negative AO Auto Urine SS UA pH 6.0 (10/06/21 9:17 AM) Invalid Interpretation Code 5.0 - 8.0 AO Auto Urine SS UA Protein Negative Invalid Interpretation Code Negativemg/d L AO Auto Urine SS UA Spec Grav 1.010 *ABN* (10/06/21 9:17 AM) Invalid Interpretation Code 1.015-1.025 AO Auto Urine SS UA Specimen Type Clean Catch (10/06/21 9:17 AM) Invalid Interpretation Code AO Auto Urine SS UA Urobilinogen 0.2 E.U./dL Invalid Interpretation Code 0.2-1.0E.U./ dL AO Auto Urine SS Albumin BCP dye [Mass/Vol] 3.8 G/dL Invalid Interpretation Code 3.4 - 4.8 G/dL AO ADM SS Albumin/Globulin [Mass ratio] 1.1 {ratio} Invalid Interpretation Code 1.1 - 2.5 ratio AO ADM SS ALP [Catalytic activity/Vol] 102 U/L Invalid Interpretation Code 40 - 135 U/L AO ADM SS ALT With P-5'-P [Catalytic activity/Vol] 20 U/L Invalid Interpretation Code 14 - 59 U/L AO ADM SS AST With P-5'-P [Catalytic activity/Vol] 14 U/L Invalid Interpretation Code 10 - 40 U/L AO ADM SS Bilirubin [Mass/Vol] 0.4 mg/dL Invalid Interpretation Code 0.2 - 1.0 mg/dL AO ADM SS Calcium [Mass/Vol] 9.3 mg/dL Invalid Interpretation Code 8.4 - 10.2 mg/dL AO ADM SS Chloride [Moles/Vol] 104 mmol/L Invalid Interpretation Code 98 - 107 mmol/L AO ADM SS Cholesterol [Mass/Vol] 196 mg/dL Invalid Interpretation Code 0 - 200 mg/dL AO ADM SS Cholesterol in HDL [Mass/Vol] 66 mg/dL Invalid Interpretation Code 40 - 60 mg/dL AO ADM SS Cholesterol in LDL [Mass/Vol] 117 mg/dL Invalid Interpretation Code 0 - 130 mg/dL AO ADM SS CO2 [Moles/Vol] 30 mmol/L Invalid Interpretation Code 23 - 31 mmol/L AO ADM SS Creatinine [Mass/Vol] 0.81 mg/dL Invalid Interpretation Code 0.55 - 1.02 mg/dL AO ADM SS Electrolyte Balance 9.0 mEq/L Invalid Interpretation Code 4.0 - 15.0 mEq/L AO ADM SS Globulin 3.5 G/dL Invalid Interpretation Code AO ADM SS Glucose [Mass/Vol] 99 mg/dL Invalid Interpretation Code 80 - 115 mg/dL AO ADM SS Potassium [Moles/Vol] 4.8 mmol/L Invalid Interpretation Code 3.5 - 5.1 mmol/L AO ADM SS Protein [Mass/Vol] 7.3 G/dL Invalid Interpretation Code 6.4 - 8.2 G/dL AO ADM SS Sodium [Moles/Vol] 143 mmol/L Invalid Interpretation Code 136 - 145 mmol/L AO ADM SS Triglyceride [Mass/Vol] 66 mg/dL Invalid Interpretation Code 0 - 150 mg/dL AO ADM SS TSH Qn 4.14 m[IU]/L Invalid Interpretation Code 0.36 - 3.74 mcIU/mL AO ADM SS Urea nitrogen [Mass/Vol] 18 mg/dL Invalid Interpretation Code 7 - 18 mg/dL AO ADM SS Urea nitrogen/Creatinine [Mass ratio] 22 ratio Invalid Interpretation Code 7 - 27 ratio AO ADM SS LABORATORYOrdered By: Danae Galvan on 10-06-2021 Basophil, Absolute 0.0 103/mcL Invalid Interpretation Code 0.0 - 0.2 10^3/mcL AO Workflow SS Basophils/100 WBC (Bld) 0.5 % Invalid Interpretation Code 0.0 - 2.5 % AO Workflow SS Eosinophil, Absolute 0.2 103/mcL Invalid Interpretation Code 0.0 - 0.4 10^3/mcL AO Workflow SS Eosinophils/100 WBC (Bld) 3.5 % Invalid Interpretation Code 0.0 - 7.0 % AO Workflow SS Erythrocyte distribution width (RBC) [Ratio] 12.7 % Invalid Interpretation Code 11.5 - 14.5 % AO Workflow SS Hematocrit (Bld) [Volume fraction] 40.7 % Invalid Interpretation Code 37.0 - 47.0 % AO Workflow SS Hemoglobin (Bld) [Mass/Vol] 14.1 G/dL Invalid Interpretation Code 12.0 - 16.0 G/dL AO Workflow SS Lymphocyte, Absolute 1.3 103/mcL Invalid Interpretation Code 0.8 - 3.9 10^3/mcL AO Workflow SS Lymphocytes/100 WBC (Bld) 22.4 % Invalid Interpretation Code 10.0 - 50.0 % AO Workflow SS MCH (RBC) [Entitic mass] 29.1 pg Invalid Interpretation Code 27.0 - 31.2 pg AO Workflow SS MCHC 34.6 G/dL Invalid Interpretation Code 33.0 - 37.0 G/dL AO Workflow SS MCV (RBC) [Entitic vol] 84.2 fL Invalid Interpretation Code 80.0 - 94.0 fL AO Workflow SS Monocyte, Absolute 0.5 103/mcL Invalid Interpretation Code 0.2 - 1.0 10^3/mcL AO Workflow SS Monocytes/100 WBC (Bld) 8.7 % Invalid Interpretation Code 1.7 - 13.0 % AO Workflow SS Neutrophil, Absolute 3.8 103/mcL Invalid Interpretation Code 2.9 - 6.2 10^3/mcL AO Workflow SS Neutrophils/100 WBC (Bld) 64.9 % Invalid Interpretation Code 37.0 - 80.0 % AO Workflow SS Platelet mean volume (Bld) [Entitic vol] 8.4 fL Invalid Interpretation Code 7.4 - 10.4 fL AO Workflow SS Platelets (Bld) [#/Vol] 246 103/mcL Invalid Interpretation Code 130 - 400 10^3/mcL AO Workflow SS RBC (Bld) [#/Vol] 4.83 106/mcL Invalid Interpretation Code 4.20 - 5.40 10^6/mcL AO Workflow SS WBC 5.8 103/mcL Invalid Interpretation Code 4.6 - 10.8 10^3/mcL AO Workflow SS LABORATORYOrdered By: SYSTEM SYSTEM on 10-06-2021 GFR 87 ml/min/1.73sqm Invalid Interpretation Code AO Chemistry S GFR Non- 71 ml/min/1.73sqm Inval id Interpretation Code AO Chemistry S Vital Signs Date Time Vital Sign Value Performing Clinician Leonila lozano 05-07-2023 13:29-0400 Body height 160.[address] Monik Xie Work Phone: [facility] 05-07-2023 13:29-040 Body mass index (BMI) [Ratio] 25.3 kg/m2 Dr. Monik Xie Work Phone: [facility] 05-07-2023 13:29-040 Body temperature 98.4 [degF] Dr. Monik Xie Work Phone: [facility] 05-07-2023 13:29-040 Body weight 64.[address] Monik Xie Work Phone: [facility] 05-07-2023 13:29-0400 Diastolic blood pressure 78 mm[Hg] Dr. Monik Xie Work Phone: [facility] 05-07-2023 13:29-0400 Heart rate 87 /min Dr. Monik Xie Work Phone: [facility] 05-07-2023 13:29-0400 Respiratory rate 12 /min Dr. Monik Xie Work Phone: [facility] 05-07-2023 13:29-0400 SaO2% (BldA) [Mass fraction] 97 % Dr. Monik Xie Work Phone: [facility] 05-07-2023 13:29-0400 Systolic blood pressure 128 mm[Hg] Dr. Monik Xie Work Phone: [facility] Encounters Encounter Date Encounter Type Care Provider Facility Start: 06-19-2024 Encounter for other preprocedural examination Kenji [facility] Start: 06-14-2024 End: 06-14-[address] Monik Xie MD Work Phone: [facility] Work Phone: Start: 06-14-2024 End: 06-14-[address] Kenji Lobato MD -Laboratory Work Phone: Start: 06-14-2024 End: 06-14-2024 ambulatory Kenjiolivia Lobato Facility:[facility] Start: 05-28-2024 End: 05-28-[address] Kenji Lobato MD -Laboratory, [place] Work Phone: Start: 05-28-2024 End: 05-28-2024 ambulatory Kenji Lobato Facility:[facility] Start: 05-16-2024 End: 05-16-[address] Monik Xie MD Work Phone: [facility] Work Phone: Start: 05-16-2024 End: 05-16-2024 Patient encounter procedure Jaida Pennington -Laboratory, [place] Work Phone: Start: 05-16-2024 End: 05-16-2024 ambulatory Jaida Tekoa Facility:[facility] Start: 05-03-2024 End: 05-03-[address] MONIK XIE MD Facility:[facility] Start: 04-22-2024 End: 04-22-[address] Monik Xie MD Work Phone: [facility] Work Phone: Start: 04-22-2024 End: 04-22-2024 Patient encounter procedure Carloz Avitia PA -Laboratory, Specimen Work Phone: Start: 04-22-2024 End: 04-22-2024 ambulatory Carloz Avitia Facility:[facility] Start: 04-20-2024 End: 04-20-2024 Patient encounter procedure Carloz Avitia [facility] Work Phone: Start: 04-20-2024 End: 04-20-2024 ambulatory Monik Xie Facility:[facility] Start: 10-24-2023 End: 10-24-[address] MONIK XIE MD Facility:[facility] Start: 10-24-2023 End: 10-24-[address] MONIK XIE MD [facility] Start: 10-16-2023 End: 10-16-2023 ambulatory Monik Xie Facility:[facility] Start: 2023 End: [address] MONIK XIE MD Facility:[facility] Start: 2023 End: [address] MONIK XIE MD [facility] Start: 08-04-2023 End: 08-04-2023 ambulatory Monik Xie Facility:[facility] Start: 05-08-2023 End: 05-08-[address] Monik Xie Work Phone: [facility] Work Phone: Start: 05-08-2023 End: 05-08-[address] Monik Xie Work Phone: [facility]-Laboratory, Specimen Work Phone: Start: 05-07-2023 End: 05-07-[address] Monik Xie Work Phone: [facility] Work Phone: Start: 12-07-2022 End: 12-07-2022 ambulatory [facility] Work Phone: Start: 12-07-2022 End: 12-07-2022 Patient encounter procedure [facility]-Laboratory Work Phone: Start: 09-27-2022 End: 09-27-2022 ambulatory [facility] Work Phone: Start: 09-27-2022 End: 09-27-2022 Patient encounter procedure [facility]-Laboratory Work Phone: Start: 08-20-2022 End: 08-20-2022 ambulatory [facility] Facility:[facility] Start: 08-15-2022 End: 08-15-[address] MONIK XIE MD [facility] Start: 12-02-2021 End: 12-02-[address] MONIK XIE MD [facility] Start: 10-06-2021 End: 10-06-[address] MONIK XIE MD [facility] Start: 10-05-2021 End: 10-09-[address] MONIK XIE MD [facility] Start: 2021 End: 10-08-[address] MONIK XIE MD [facility] Procedures Date Procedure Procedure Detail Performing Clinician Start: 05-16-[address] Monik Xie MD Work Phone: Start: 04-22-[address] Monik Xie MD Work Phone: Start: 05-07-[address] 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 12-10-2020 SARS-CoV-2 mRNA (tozinameran) vaccine DR MONIK XIE MD [facility] Comment on above: Result Comment: 2020: [id number] 09-20-2019 zoster vaccine recombinant; Translations: [Shingrix] DR MONIK XIE MD [facility] 11-23-2018 pneumococcal conjuga te vaccine, 13 valent; Translations: [Prevnar 13] DR MONIK XIE MD [facility] 11-23-2018 tetanus toxoid, redu se diphtheria toxoid, and acellular pertussis vaccine, adsorbed; Translations: [Boostrix (Tdap)] DR MONIK XIE MD [facility] 11-23-2018 zoster vaccine recombinant; Translations: [Shingrix] DR MONIK XIE MD [facility] Payers Date Payer Category Payer Medicare [id number] 2023 Private Health Insurance [id number] 2022 Self-pay 1960 Unknown [id number] 2.16.8 [id number] 1960 Unknown [id number] 2..8 [id number] 1960 Unknown [id number] 2.16.8 [id number] Unknown [id number] 2.16.8 [id number] Unknown [id number] 2.16.8 [id number] Unknown [id number] Unknown [id number] 2.16.8 [id number] Unknown [id number] 2.16.8 [id number] Unknown [id number] 2.16.8 [id number] Unknown [id number] 2.16.8 [id number] Unknown [id number] 2.16.8 [id number] Unknown [id number] 2.16.8 [id number] Unknown [id number] 2.16.8 [id number] Social History Date Type Detail Facility Start: 10-13-2021 Tobacco smoking status Never s moked tobacco (finding) [facility] Start: 1960 Sex Assigned At Female [facility] Work Phone: Start: 04-27-2024 End: 05-21-2024 Sex Female (finding) [facility] Clinical Notes 10-07-2021 to 04-20-2024 Note Date & Type Note Facility 04-20-2024 Evaluation note Diagnosis Onset Date Resolution UTI (urinary tract infection) acute April 20, 2024 10:12am [facility] Work Phone: 1(349) 115-104609-01-2022 Note URINE [facility] 09-01-2022 Note URINE [facility] 09-01-2022 Note URINE [facility] 09-01-[address] [facility] 09-01-[address] [facility] 09-01-2022 Note Pathology report verified by [facility] Screened by: LEAH Electronically signed by MICHAEL RICO MD Sign-Out Date: 10/07/2021 08:56 Performing Lab: [facility], [address] [place] [address] 09-01-2022 Note Pathology report verified by [facility] Screened by: LEAH OLIVEIRA Electronically signed by MICHAEL RICO MD Sign-Out Date: 10/07/2021 08:56 Performing Lab: [facility], [address] [place] [address] 09-01-2022 Note Pathology report verified by [facility] Screened by: LEAH OLIVEIRA Electronically signed by MICHAEL RICO MD Sign-Out Date: 10/07/2021 08:56 Performing Lab: [facility], [address] [place] [address] 09-01-2022 Note Pathology report verified by [facility] Screened by: LEAH OLIVEIRA Electronically signed by MICHAEL RICO MD Sign-Out Date: 10/07/2021 08:56 Performing Lab: [facility], [address] [place] [address] 09-01-2022 Note Pathology report verified by [facility] Screened by: LEAH OLIVEIRA Electronically signed by MICHAEL RICO MD Sign-Out Date: 10/07/2021 08:56 Performing Lab: [facility], [address] [place] [address] 09-01-2022 Note Pathology report verified by [facility] Screened by: LEAH OLIVEIRA Electronically signed by MICHAEL RICO MD Sign-Out Date: 10/07/2021 08:56 Performing Lab: [facility], [address] [place] [address] Evaluation + Plan note Future Appointments Appointment Date:10/13/2021 09:30:00 AM Scheduled Provider:MONIK XIE MD Location:[facility] Appointment Type:PC Wellness Annual w/Labs Future Scheduled Tests Laboratory* Thyroid Stimulating Hormone 11/17/21 [facility] Evaluation + Plan note Future Appointments Appointment Date:10/12/2022 09:30:00 AM Scheduled Provider:MONIK XIE MD Location:[facility] Appointment Type:PC Wellness Annual [facility] Evaluation + Plan note Future Appointments Appointment Date:10/12/2022 09:30:00 AM Scheduled Provider:MONIK XIE MD Location:[facility] Appointment Type: Wellness Annual Diagnostic Tests Pending * Antinuclear Antibody Screen, Serum 08/15/22 [facility] Evaluation + Plan note Future Appointments Appointment Date:10/13/2023 09:30:00 AM Scheduled Provider:MONIK XIE MD Location:[facility] Appointment Type:PC Wellness Medicare Appointment Date:05/06/2024 02:00:00 PM Scheduled Provider:MONIK XIE MD Location:[facility] Appointment Type:PC OV Follow Up Future Scheduled Tests Radiology* BD Bone Density DEXA Axial Skeleton 10/08/23 [facility] Evaluation + Plan note Future Appointments Appointment Date:05/06/2024 02:00:00 PM Scheduled Provider:MONIK XIE MD Location:[facility] Appointment Type:PC OV Follow Up Appointment Date:10/21/2024 09:00:00 AM Scheduled Provider:MONIK XIE MD Location:[facility] Appointment Type:PC Wellness Medicare [facility] Evruzation noteNo assessment information available [facility] Work Phone: Evalujlyos note* Diagnosis Onset Date Resolution Status UTI (urinary tract infection) acute [facility] Work Phone: Hospital course Narrative No data available for this section [facility] Hospital Discharge instructions No data available for this section [facility] Progress note No data available for this section [facility] Reason for referral (narrative)[facility] reason for [facility]: Summary Purpose Family History No Family History Records FoundNo Family History Records Found No data available for this section No Family History Records Found No data available for this section No Family History Records FoundNo Family History Records Found Advance Directives No Advanced Directives Records FoundNo Advanced Directives Records FoundNo Advanced Directives Records FoundNo Advanced Directives Records FoundNo Advanced Directives Records Found Chief Complaint and Reason for Visit Chief Complaint CONCERN FOR UTI Reason for Visit UTI (urinary tract i nfection) Chief Complaint Admit Date CONCERN FOR UTI April 20, 2024 10: 12am [facility] April 22, 2024 10: 50am Reason for Visit Admit Date UTI (urinary tract infection) April 10:12am Chief Complaint Admit Date CONCERN FOR UTI April 20, 2024 10: 12am [facility] April 22, 2024 10: 50am NEED ORDER June 14, 2024 9:52am Additional Source Comments Care Team (unrecognized sect ion and content) Care Team Personnel Name: MONIK XIE MD Position: P4 Physician - Primary Care Member Role: Primary Care Physician Address: Address: [address] [place] [address] Care Team Related Persons Name: JOSÉ MIGUEL REVELES Address: Home [address] [place] [phone] [place] Care Team Personnel Name: MONIK XIE MD Position: P4 Physician - Primary Care Member Role: Primary Care Physician Address: Address: [address] [place] [address] Care Team Related Persons Name: JOSÉ MIGUEL REVELES Address: Home [address] [place] [phone] Care Team Personnel Name: MONIK XIE MD Position: P4 Physician - Primary Care Member Role: Primary Care Physician Address: Address: [address] [place] [address]- Care Team Related Persons Name: JOSÉ MIGUEL REVELES Address: Home [address] [place], [place] [id number] Care Team Personnel Name: MONIK XIE MD Position: P4 Physician - Primary Care Member Role: Primary Care Physician Address: Address: [address] [place] [address]- Care Team Related Persons Name: JOSÉ MIGUEL REVELES Address: Home [address] [place], [place] [phone] Patient Care team informatio n (unrecognized section and content) Team Status: Active Member Role Status Dates Dr. Monik Xie MD Primary Care Provider Active Team Status: Inactive Member Role Status Dates Dr. Monik Xie MD Primary Care P rovider, Attending Provider, Referring Provider Active Team Status: Inactive Member Role Status Dates Dr. Monik Xie MD Primary Care Provider, Atten ding Provider Active Team Status: Active Member Role Status Dates ANNE-MARIE RUGGIERO Primary Care Provide r, Attending Provider, Referring Provider Active Team Status: Inactive Member Role Status Dates Dr. Monik Xie MD Primary Care Provider, Refer ring Provider Active Eric Perkins MARKET RESEARCH INTERVIEWER, MARKET RESEARCH INTERVIEWER-C Attending Provider Active Team Status: Inactive Member Role Status Dates Dr. Monik Xie MD Primary Care Provider Active Eric Perkins MARKET RESEARCH INTERVIEWER, MARKET RESEARCH INTERVIEWER-C Attending Provider, Referring Pro vider Active Team Status: Inactive Member Role Status Dates Dr. Monik Xie MD Primary Care Provider Active Start: April 20, 2024 End: April 20, 2024 Dr. Monik Xie MD Referring Provider Active Start: April 20, 2024 End: April 20, 2024 YANN Salgado Attending Provider Active Start: April 20, 2024 End: April 20, 2024 Team Status: Inactive Member Role Status Dates Dr. Monik Xie MD Primary Care Provider Active Start: April 22, 2024 End: April 22, 2024 YANN Salgado Attending Provider Active Start: April 22, 2024 End: April 22, 2024 YANN Salgado Referring Provider Active Start: April 22, 2024 End: April 22, 2024 Team Status: Inactive Member Role Status Dates Dr. Monik Xie MD Primary Care Provider Active Start: May 16, 2024 End: May 16, 2024 Jaida Pennington Attending Provider Active Start : May 16, 2024 End: May 16, 2024 Jaida Pennington Referring Provider Active Start : May 16, 2024 End: May 16, 2024 Team Status: Inactive Member Role Status Dates Dr. Monik Xie MD Primary Care Provider Active Start: May 28, 2024 End: May 28, 2024 Dr. Kenji Lobato MD Attending Provider Active Start: May 28, 2024 End: May 28, 2024 Dr. Kenji Lobato MD Referring Provider Active Start: May 28, 2024 End: May 28, 2024 Team Status: Inactive Member Role Status Dates Dr. Monik Xie MD Primary Care Provider Active Start: June 14, 2024 End: June 14, 2024 Dr. Kenji Lobato MD Attending Provider Active Start: June 14, 2024 End: June 14, 2024 Dr. Kenji Lobato MD Referring Provider Active Start: June 14, 2024 End: June 14, 2024 INFORMATION SOURCE (unrecogn ized section and content) DATE CREATED AUTHOR 08/20/2022 [facility] DATE CREATED AUTHOR AUTHOR'S ORGANIZ ATION 08/24/2022 [facility] DATE CREATED AUTHOR AUTHOR'S ORGANIZ ATION 10/06/2023 [facility] ([place]) DATE CREATED AUTHOR AUTHOR'S ORGANIZ ATION 05/04/2024 [facility] DATE CREATED AUTHOR AUTHOR'S ORGANIZ ATION 06/20/2024 [facility] Goals (unrecognized section and content) Goals may be documented in a n alternate section FOR RECORDS PERTAINING TO PATIENTS WHO ARE OR HAVE BEEN ENROLLED IN A CHEMICAL DEPENDENCY/SUBSTANCEABUSE PROGRAM, SOME INFORMATION MAY BE OMITTED. This clinical summary was aggregated from multiple sources. Caution should be exercised in using it in the provision of clinical care. This summary normalizes information from multiple sources, and as a consequence, information in this document may materially change the coding, format and clinical context of patient data. In addition, data may be omitted in some cases. CLINICAL DECISIONS SHOULD BE BASED ON THE PRIMARY CLINICAL RECORDS. [facility] [facility]. provides no warranty or guarantee of the accuracy or completeness of information in this document.
== END | disposition home or self-care (01) ==
LOC: LABSPEC 15:10
PROVIDERS: PCP Internal Medicine; Referring Provider Specialist; Visit Provider Specialist
DX: M67.843 Other specified disorders of tendon, right hand (principal)
CPT/HCPCS: 88304